=== PATIENT | female | born 1995 | race Caucasian/White ===

== ENCOUNTER → 2017-12-24 11:51 | Outpatient (CLI) | payer SELFPAY ==
[2017-12-24 14:31] LABS: HIV - WCH Non-Reactive (Nonreactive)
[2017-12-24 15:25] LABS: Chlamydia Trachomatis by PCR Negative (Negative); Neisserai gonorrhoeae by PCR Negative (Negative); Probe Check PASS; Sample Adequacy Control PASS; Specimen Processing Control PASS
[2017-12-28 02:41] LABS: Rapid Plasmin Reagin (RPR) NONREACTIVE (NONREACTIVE)
== END ==
PROVIDERS: Visit Provider Obstetrics & Gynecology
DX: Z34.83 Encounter for supervision of other normal pregnancy, third trimester (principal)
CPT/HCPCS: 36415; 86592; 86703; 87491; 87591

== ENCOUNTER → 2018-01-08 17:35 | Outpatient (CLI) | payer SELFPAY ==
[2018-01-08 19:23] LABS: Group B Strep DNA By PCR Negative (Negative); Internal Control PASS; Probe Check PASS; Specimen Processing Control PASS
== END ==
PROVIDERS: Visit Provider Obstetrics & Gynecology
DX: Z36.85 Encounter for antenatal screening for Streptococcus B (principal)
CPT/HCPCS: 87081; 87653

== ENCOUNTER → 2018-01-15 11:55 | Outpatient (CLI) | payer SELFPAY ==
[2018-01-15 14:44] LABS: Free T3 2.9 pg/mL (2.18-3.98); T4 Free Direct 0.73 ng/dL (0.76-1.46); Thyroid Stim Hormone (TSH) 1.52 uIU/mL (0.358-3.74)
== END ==
PROVIDERS: Visit Provider Obstetrics & Gynecology
DX: Z34.83 Encounter for supervision of other normal pregnancy, third trimester (principal)
CPT/HCPCS: 36415; 84439; 84443; 84481

== ENCOUNTER 2018-01-22 18:50 | Inpatient (IN) | payer SELFPAY ==
[2018-01-22 19:47] VITALS: BMI 43.2
[2018-01-22] MEDS: Lactated Ringers 1,000 ML 50 ML IV (20:05)
[2018-01-22 20:21] LABS: Bedside Glucose 107 mg/dL (70-110)
[2018-01-22 20:31] LABS: Hematocrit 37.8 % (37-47); Hemoglobin 12.2 g/dl (12.0-15.0); Mean Corp Hgb Conc 32.3 g/gl (32-36); Mean Corpuscular Hgb 27.2 pg (27.0-32.0); Mean Corpuscular Volume 84.4 fL (81-99); Mean Platelet Vol. 9.6 fl (6.2-12.0); Platelet Count 158 K/mm3 (150-450); RBC Distribution Width CV 17.9 % (11.6-14.6); RBC Distribution Width SD 55.9 fl (35.1-43.9); Red Blood Count 4.48 M/mm3 (4.2-5.4); White Blood Count 8.4 K/mm3 (4.4-11.0)
[2018-01-22 20:34] LABS: Scan Indicated on CBC? Y/N NO
[2018-01-22] MEDS: 0.9% Normal Saline 100 ML IV.SOLN. INTRA-UTER (20:35)
[2018-01-22] MEDS: miSOPROStol 25 MCG TABLET PO (20:40)
[2018-01-22] MEDS: 0.9% Saline Lock 10 ML Syringe IV (20:48)
[2018-01-22 21:41] LABS: Bedside Glucose 116 mg/dL (70-110)
[2018-01-22 22:46] LABS: Bedside Glucose 94 mg/dL (70-110)
[2018-01-23] VITALS (9 sets, daily range): BP systolic 119–160; BP diastolic 58–84; PULSE 102–132; RESP 16–18; TEMP 37–37.4; O2SAT 96–97
[2018-01-23] MEDS: miSOPROStol 25 MCG TABLET PO ×2 (00:43→04:39)
[2018-01-23 02:46] LABS: Bedside Glucose 86 mg/dL (70-110)
[2018-01-23 07:00] LABS: Bedside Glucose 78 mg/dL (70-110)
--- NOTE | 2018-01-23 08:25 | PCM.PN.BLA ---
Progress Note LABOR INDUCTION PROGRESS NOTE Garcia bulb came out last PM RN check of cervix 2-3 cm then, softer and -3 very anterior. Feeling some mild cramping. AVSS BP this am OK. Blood sugars wnl. Took pm dose of Glyburide 2.5 mg EFM 130-140 with avg variability. Accels Category I tracing Irregular UCs. poor pickup. CX: /anterior soft -3 (behind pubic symphysis) AROM clear, IUPC inserted. A/P: term IUP induction for PIH, gestational diabetes also and hyperthyroidism. Cytotec and Garcia bulb as initial method. Garcia out. Cytotec discontinued. Pitocin per protocol IUPC inserted to better monitor adequacy of UCs. Regular breakfast, diabetic diet. Hold am Glyburide. To labor liquids then. Hold am Labetolol 2/2 BPs wnl this am.
[2018-01-23] MEDS: Lactated Ringers 1,000 ML 50 ML IV ×3 (09:29→17:46)
[2018-01-23] MEDS: Oxytocin 30 units/NS 500 ml 30 UNITS/500 ML IV.SOLN IV (09:30)
[2018-01-23 10:36] LABS: Bedside Glucose 105 mg/dL (70-110)
[2018-01-23] MEDS: fentaNYL-bupivacaine (epidural) 100 ML BAG EPIDURAL ×2 (12:00→16:15)
[2018-01-23 16:10] LABS: Bedside Glucose 61 mg/dL (70-110)
[2018-01-23 16:26] LABS: Bedside Glucose 62 mg/dL (70-110)
[2018-01-23] MEDS: 0.9% Saline Lock 10 ML Syringe IV ×2 (16:36→16:37)
--- NOTE | 2018-01-23 19:25 | PN.OBGYN_ITS ---
Subjective: Comfortable with epidural in place. Objective: Afeb VSS. FHR tracing Cat 1. Adequate contractions by IUPC monitoring for greater than 10 hours. - Physical Exam General: Alert, Oriented x3, Cooperative, No apparent distress Lungs: Clear to auscultation, Normal air movement Cardiovascular: Regular rate, Regular Rhythm Abdomen: Soft, Non Tender, Non-Distended, Gravid, Appropriate for Gestational Age Extremities: No edema, No Calf Tenderness Skin: No rashes Neurological: Neuro grossly intact Psych/Mental Status: Normal Affect Comment: CE 4cm 80% -3 Weight: 228 lb 9.91 oz Body Mass Index (BMI) 43.2 Intake and Output for Last 24 Hours 01/21/18 01/22/18 01/23/18 23:59 23:59 23:59 Intake Total 100 / 100 300 / 300 Output Total 300 / 300 450 / 450 Balance -200 / -200 -150 / -150 Laboratory Tests Past 24 Hrs 01/22/18 01/22/18 20:00 20:00 WBC 8.4 RBC 4.48 Hgb 12.2 Hct 37.8 MCV 84.4 MCH 27.2 MCHC 32.3 RDW 17.9 H RDW Differential 55.9 H Plt Count 158 MPV 9.6 Blood Type O POSITIVE Antibody Screen NEGATIVE POC Glucose 01/23/18 01/23/18 01/23/18 16:19 16:01 10:30 POC Glucose 62 L 61 L 105 01/23/18 01/23/18 01/22/18 06:31 02:36 22:27 POC Glucose 78 86 94 01/22/18 01/22/18 21:28 20:13 POC Glucose 116 H 107 Medical Necessity - Tobacco Use Smoking Status: Never smoker Assessment/Plan 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 head has significant caput as well. Given lack of progress have elected to recommend delivery. Indications for delivery explained. Procedures, risks, and postoperative expectations discussed. All questions answered.
[2018-01-23 19:31] LABS: Bedside Glucose 67 mg/dL (70-110)
[2018-01-23] MEDS: Sodium Citrate/Citric Acid 30 ML UDC PO (19:33)
--- NOTE | 2018-01-23 19:34 | DCINST_ITS ---
Discharge Diet: No Restrictions Discharge Activity: Return to Normal Activity, May Not Drive, May not drive while taking narcotic pain medications., May Shower Return to work on:: 03/25/18 May shower in (days): 0 May resume sexual activity in: 4-6 weeks Call your doctor if your incision/area has: Sudden Increased Bleeding, Increased Pain/ Swelling, Increased Redness, Foul Smelling Discharge, Swelling at the incision site Call your doctor if you observe: Fever of 101 or Higher, Inability to urinate, Inability to have a bowel movement, Using more than one pad per hour, Shortness of breath, Chest pain, Calf discomfort, Uncontrolled pain Remove Dressing in (days):: 2 Cleanse incision/area with: Soap & Water Additional Instructions: If you experience any of the following, contact your healthcare provider. * Bleeding that soaks a pad every hour for 2 hours * Fever 100.4 or higher * Unrelieved incision or abdominal pain * Swelling, redness, discharge or bleeding from your incision or episiotomy site * Your incision begins to separate * Problems urinating (including inability to urinate or burning while urinating) . * Visual changes * Severe headache * Flu-like symptoms * Pain or redness in one of both of your breasts * Pain, warmth, tenderness or swelling in your legs, especially the calf area * Frequent nausea and vomiting * Symptoms of depression or anxiety If you experience any of the following, call 911 or go to the nearest Emergency Room. * Chest pain * Problems breathing * Seizure activity * Partial or complete paralysis of a body part, slurred speech, weakness or drooping of the face, or a sudden inability to walk or hold your balance Allergies/Adverse Reactions: Allergies No Known Allergies Allergy (Verified 01/22/18 19:42) Medications to take at Discharge Docusate Sodium [Dok] 100 mg PO BID 01/22/18 Ferrous Sulfate [Iron] 325 mg PO DAILY 01/22/18 Labetalol [Trandate (Beta Loretta)] 100 mg PO BID 01/22/18 Ibuprofen 600 mg PO Q6H PRN PRN #30 tab 01/23/18 Oxycodone [Oxyir] 5 - 10 mg PO Q4H PRN PRN 7 Days #28 tab 01/23/18 The following prescriptions were given: Oxycodone [Oxyir] 5 - 10 mg PO Q4H PRN PRN 7 Days #28 tab PRN Reason: Mod-Severe Pain (-03/27) Ibuprofen 600 mg PO Q6H PRN PRN #30 tab PRN Reason: pain or cramping Follow-Up: Call to make an appointment with your doctor for an incision check in 1-2 weeks. You will also need a 6 week post- follow up appointment. Test results from this visit will be discussed in further detail at your follow- up appointment, if applicable. Please Follow Up With: Ani Isaac MD Proposed Discharge Date: 01/26/18
--- NOTE | 2018-01-23 19:52 | OP.PCM_ITS ---
Problem List (1) Arrest of dilation, delivered, current hospitalization Status: Chronic Report of Operation Date of Procedure: 01/23/18 Pre-Operative Diagnosis: GDM A2, Gestational Hypertension, Arrest of labor at 4 cm, Failed induction Post-Operative Diagnosis: Same Surgery/Procedure Performed:: Primary Low Transverse Section Description of Surgical Findings:: Live male in vertex presentation. Apgars 8/8. Amniotic fluid clear. Normal appearing uterus, ovaries, and fallopian tubes. spent grain dryer: Nico Moran Type of Anesthesia:: Epidural Anesthesiologist: Ronak Kaufman Special Medications: none Specimen's removed: cord blood Drains: klein Estimated Blood Loss (mL): 600cc Fluids Replaced: 1500cc LR Description of Procedure: Cherie was taken to the OR with IV running. She was given two grams of Ancef intravenously for surgical prophylaxis. SCDs were in place and operational throughout the case. A klein catheter had been previously placed. Once here epidural was dosed and anesthesia was found to be adequate she was prepped and draped in the supine position with a leftward tilt. A Pfannensteil skin incision was then made with the scalpel about two cm above the symphysis pubis. The underlying subcutaneous tissue was dissected down to the level of fascia with blunt and sharp dissection. The fascia was then incised horizontally and this incision was extended bilaterally with the GENTILE scissors. The rectus muscles were then dissected off the lower and upper portions of the fascia. The rectus muscles were in the midline, the peritoneum was identified and entered sharply. The peritoneal defect was extended using blunt retraction. A bladder blade was placed. The vesicouterine peritoneum was identified, entered sharply and a bladder flap was created. The bladder blade was replaced. The lower uterine segment was then incised in a transverse fashion. Once the cavity was entered the uterine defect was extended using blunt lateral and superior traction. The baby's head was then delivered followed by the body. The nose and mouth were suctioned with a bulb suction. The cord was then clamped and cut. The baby was then handed off to the waiting nursery nursing staff for evaluation. The placenta was then delivered manually. The uterus was exteriorized and cleared of all clot and membranes. The uterine defect was then closed in two layers with #1 Vicryl suture. The posterior cul de sac was cleared of all clot and fluid. The uterus was returned to the abdomen. The gutters were then cleared of clot and fluid. The uterine incision was reinspected and found to be hemostatic. The peritoneum was then closed with a running stitch of 2-0 Vicryl. The rectus muscles were reapproximated with interrupted sutures of 0-Vcryl. The fascia was closed with a running stitch of #1 Stratofix suture. The subcutaneous tissue was closed with 2-0 Vicryl. The skin was closed with a subcuticular stitch of 4-0 Monocryl suture. Sponge, lap, needle, and instrument counts were correct. She was taken to the recovery room in stable condition. Grafts/Implants Used: none - Complications none - Admit VTE Documentation VTE Present on Admission: No VTE Mechan Device Prophylaxis: SCD's VTE Pharm Prophylaxis ordered?: No
[2018-01-23] MEDS: Cefazolin 2 GM in 0.9% Normal Saline 100 ML IV (20:00)
[2018-01-23] MEDS: Oxytocin 30 units/NS 500 ml 30 UNITS/500 ML IV.SOLN 167 UNITS IV (20:14)
--- NOTE | 2018-01-23 20:36 | PCM.OB.CSR ---
- Problem List (1) Arrest of dilation, delivered, current hospitalization Status: Chronic Delivery Classification: ASHER Final LISSETH: 01/29/18 Final LISSETH Source: US <20 weeks Gestational age: 39 Weeks and 1 Days Indications for : Sec. Arrest of Dilitation Description of Procedure: Maximum dilation 4 cm despite adequate contractions for greater than 10 hours. Delivery of a live male with APGARs of 8/8. Normal appearing uterus, ovaries, and fallopian tubes. Amniotic Membrane Rupture Type: Artificial Amniotic Fluid Description: Clear Placenta Disposition: [facility] Specimen(s) sent to pathology: cord blood Drain: Garcia to straight drain Fluids Replaced: 1500cc LR Cord Entanglement: None Nuchal Cord Compression: Without compression Cord Vessel Description: 3 Vessels Esitmated Blood Loss (ml): 600cc Gender: Male (1 minute): 8 (5 minute): 8 Pre-op Antibiotic Given: Ancef 2 grams IV x1 Pt instructed on risks of surgery: Bleeding, Infection, Injury to surrounding structure(s) including bowel and bladder - Admit VTE Documentation VTE Present on Admission: No VTE Mechan Device Prophylaxis: SCD's VTE Pharm Prophylaxis ordered?: No
[2018-01-23] MEDS: Labetalol 100 MG Tablet PO (21:44)
[2018-01-23] MEDS: Ketorolac 30 MG/ML Syringe IV (21:56)
[2018-01-23 22:15] LABS: Bedside Glucose 86 mg/dL (70-110)
[2018-01-23] MEDS: Lactated Ringers 1,000 ML 100 ML IV (23:20)
[2018-01-24] VITALS (17 sets, daily range): BP systolic 127–148; BP diastolic 60–87; PULSE 96–119; RESP 16–20; TEMP 36.3–37.1; O2SAT 96–99
[2018-01-24] MEDS: Cefazolin 1 GM/50 ML BAG IV ×2 (04:08→12:57)
[2018-01-24] MEDS: Ketorolac 30 MG/ML Syringe IV ×4 (06:01→21:48)
[2018-01-24 06:53] LABS: Hematocrit 35.3 % (37-47); Hemoglobin 11.4 g/dl (12.0-15.0); Mean Corp Hgb Conc 32.3 g/gl (32-36); Mean Corpuscular Hgb 27.3 pg (27.0-32.0); Mean Corpuscular Volume 84.7 fL (81-99); Mean Platelet Vol. 9.8 fl (6.2-12.0); Platelet Count 143 K/mm3 (150-450); RBC Distribution Width CV 18.1 % (11.6-14.6); Red Blood Count 4.17 M/mm3 (4.2-5.4); White Blood Count 13.5 K/mm3 (4.4-11.0)
[2018-01-24 06:58] LABS: Scan Indicated on CBC? Y/N NO
--- NOTE | 2018-01-24 07:36 | PCM.PN.OB ---
Subjective: No complaints this morning. Pain reasonably controlled. Tolerating PO. Bleeding light. Objective: Afeb VSS BP mildly elevated. Hgb stable. Urine output adequate. - Physical Exam General: Alert, Oriented x3, Cooperative, No apparent distress Lungs: Clear to auscultation, Normal air movement Cardiovascular: Regular rate, Regular Rhythm Abdomen: Soft, Non Tender, - - Fundus nontender, incision dressing dry Extremities: Edema - 1+ Vital Signs Temp Pulse Resp BP Pulse Ox 98.3 F 119 H 18 148/74 H 96 01/24/18 05:04 01/24/18 06:04 01/24/18 06:04 01/24/18 05:04 01/24/18 06:04 Oxygen Delivery Method Room Air Weight: 228 lb 9.91 oz Body Mass Index (BMI) 43.2 Intake and Output for Last 24 Hours 01/22/18 01/23/18 01/24/18 23:59 23:59 23:59 Intake Total 100 / 100 1040 / 1040 703 / 703 Output Total 300 / 300 1350 / 1350 400 / 400 Balance -200 / -200 -310 / -310 303 / 303 Laboratory Tests Past 24 Hrs 01/24/18 06:25 WBC 13.5 H RBC 4.17 L Hgb 11.4 L Hct 35.3 L MCV 84.7 MCH 27.3 MCHC 32.3 RDW 18.1 H RDW Differential 56.0 H Plt Count 143 L MPV 9.8 POC Glucose 01/23/18 01/23/18 01/23/18 21:55 19:22 16:19 POC Glucose 86 67 L 62 L 01/23/18 01/23/18 16:01 10:30 POC Glucose 61 L 105 Medical Necessity - Tobacco Use Smoking Status: Never smoker Assessment/Plan Doing well on POD#1. Post op blood glucose level normal. Continue low dose labetalol. D/C klein later today. Continue routine PO care.
[2018-01-24] MEDS: Ferrous Sulfate 325 MG Tablet PO (08:50)
[2018-01-24] MEDS: Lactated Ringers 1,000 ML 100 ML IV (10:27)
[2018-01-24] MEDS: Docusate Sodium 100 MG Capsule PO ×2 (10:28→21:58)
[2018-01-24] MEDS: Labetalol 100 MG Tablet PO ×2 (10:28→21:48)
--- NOTE | 2018-01-24 19:02 | PCM.PN.BLA ---
Progress Note Patient relates tearfulness early today and prior h/o depression improved with Zoloft however she only took if for 3 weeks, then discontinued it after mood improved. She is concerned about risk for depression. Discussed blues vs. depression symptoms and timing. Commone side effects of Zoloft reviewed, pt tolerated well previously. Following discussion, pt opts to restart Zoloft. Zoloft ordered for am.
[2018-01-24] MEDS: 0.9% Saline Lock 10 ML Syringe IV (22:00)
--- NOTE | 2018-01-25 02:23 | NURSING ---
2200-feeling gas off and on. enc up to ambulate
[2018-01-25] MEDS: Ketorolac 30 MG/ML Syringe IV ×3 (03:13→14:59)
[2018-01-25] MEDS: 0.9% Saline Lock 10 ML Syringe IV ×3 (03:14→14:59)
--- NOTE | 2018-01-25 09:10 | PCM.PN.OB ---
Subjective: Cherie is sore this morning. Pain improved from yesterday. She is passing flatus and had a bowel movement early this morning. Tolerates a regular diet. She continues nursing. Objective: AVSS - Physical Exam General: Alert, Oriented x3, Cooperative, No apparent distress HEENT: Atraumatic, Normocephalic Lungs: Clear to auscultation, Normal air movement Cardiovascular: Regular rate, Regular Rhythm, Normal S1, Normal S2 Abdomen: Bowel Sounds Present, Soft, Non Tender, Obese, - - fundus firm and nontender Extremities: No edema, No Calf Tenderness Neurological: Neuro grossly intact Psych/Mental Status: Normal Affect, Appropriate, Alert and oriented to time, place, person, mood and affect Vital Signs Temp Pulse Resp BP Pulse Ox 98.1 F 115 H 20 H 137/87 H 98 01/24/18 21:00 01/24/18 21:00 01/24/18 21:00 01/24/18 21:05 01/24/18 21:00 Oxygen Delivery Method Room Air Weight: 103.7 kg Body Mass Index (BMI) 43.2 Intake and Output for Last 24 Hours 01/23/18 01/24/18 01/25/18 23:59 23:59 23:59 Intake Total 1040 / 1040 2753 / 2753 120 / 120 Output Total 1350 / 1350 1850 / 1850 250 / 250 Balance -310 / -310 903 / 903 -130 / -130 Medical Necessity - Tobacco Use Smoking Status: Never smoker Assessment/Plan 22yo POD#2 S/P pltcs DOING WELL. -Rh positive -Routine postop care -cONSIDER D/C LATER TODAY.
[2018-01-25 09:15] VITALS: BP 134/72; PULSE 101; RESP 18; TEMP 36.4; O2SAT 97
[2018-01-25] MEDS: Ferrous Sulfate 325 MG Tablet PO (09:33)
[2018-01-25] MEDS: Sertraline 50 MG Tablet 25 MG PO (09:33)
[2018-01-25] MEDS: Labetalol 100 MG Tablet PO (09:33)
--- NOTE | 2018-01-25 09:40 | PN.OBGYN_ITS ---
- Physical Exam Vital Signs Temp Pulse Resp BP Pulse Ox 98.1 F 115 H 20 H 137/87 H 98 01/24/18 21:00 01/24/18 21:00 01/24/18 21:00 01/24/18 21:05 01/24/18 21:00 Oxygen Delivery Method Room Air Weight: 103.7 kg Body Mass Index (BMI) 43.2 Intake and Output for Last 24 Hours 01/23/18 01/24/18 01/25/18 23:59 23:59 23:59 Intake Total 1040 / 1040 2753 / 2753 120 / 120 Output Total 1350 / 1350 1850 / 1850 250 / 250 Balance -310 / -310 903 / 903 -130 / -130 Medical Necessity - Tobacco Use Smoking Status: Never smoker
--- NOTE | 2018-01-25 13:54 | PCM.DC.SUM ---
Discharge Date and Diagnosis Date of Admission: 01/22/18 Date of Discharge: 01/25/18 - Secondary Discharge Diagnosis Chronic Problems Arrest of dilation, delivered, current hospitalization (Chronic) Hospital Course and Treatment Consultations 01/22/18 18:55 Consult: Anesthesia Routine Comment: Reason For Exam: labor Operations: - - section Summary of Care Provided: The patient is a 22 year old F 1 admitted at 39+ weeks gestation with h/o gestational diabetes, gestational hypertension for induction of labor. She underwent a low transverse section on hospital day #2 for failed induction with arrest of dilation at 4cm. She was restarted on Zoloft post-operatively. Her postop course was otherwise unremarkable and she was discharged to home on post-operative day #2. Discharge Diet: No Restrictions Discharge Activity: Return to Normal Activity, May Not Drive, May not drive while taking narcotic pain medications., May Shower Return to work on:: 03/25/18 May shower in (days): 0 May resume sexual activity in: 4-6 weeks Call your doctor if your incision/area has: Sudden Increased Bleeding, Increased Pain/ Swelling, Increased Redness, Foul Smelling Discharge, Swelling at the incision site Call your doctor if you observe: Fever of 101 or Higher, Inability to urinate, Inability to have a bowel movement, Using more than one pad per hour, Shortness of breath, Chest pain, Calf discomfort, Uncontrolled pain Remove Dressing in (days):: 2 Cleanse incision/area with: Soap & Water Home Medications: Medications to take at Discharge Docusate Sodium [Dok] 100 mg PO BID 01/22/18 Ferrous Sulfate [Iron] 325 mg PO DAILY 01/22/18 Ibuprofen 600 mg PO Q6H PRN PRN #30 tab 01/23/18 Oxycodone [Oxyir] 5 - 10 mg PO Q4H PRN PRN 7 Days #28 tab 01/23/18 Labetalol [Trandate (Beta Loretta)] 100 mg PO BID tablet 01/25/18 Sertraline HCl [Zoloft] 25 mg PO DAILY tablet 01/25/18 Following Prescrptions Were Given to Patient: Oxycodone [Oxyir] 5 - 10 mg PO Q4H PRN PRN 7 Days #28 tab PRN Reason: Mod-Severe Pain (-03/27) Ibuprofen 600 mg PO Q6H PRN PRN #30 tab PRN Reason: pain or cramping Please Follow Up With: Ani Isaac MD Medical Necessity - Tobacco Use Smoking Status: Never smoker Meaningful Use Info Meaningful Use Diagnoses (Choose all that apply): None applicable
--- NOTE | 2018-01-25 13:57 | DS.PCM_ITS ---
Discharge Date and Diagnosis Date of Admission: 01/22/18 Date of Discharge: 01/25/18 - Secondary Discharge Diagnosis Chronic Problems Arrest of dilation, delivered, current hospitalization (Chronic) Hospital Course and Treatment Consultations 01/22/18 18:55 Consult: Anesthesia Routine Comment: Reason For Exam: labor Operations: - - section Summary of Care Provided: The patient is a 22 year old F 1 admitted at 39+ weeks gestation with h/ o gestational diabetes, gestational hypertension for induction of labor. She underwent a low transverse section on hospital day #2 for failed induction with arrest of dilation at 4cm. She was restarted on Zoloft post- operatively. Her postop course was otherwise unremarkable and she was discharged to home on post-operative day #2. Discharge Diet: No Restrictions Discharge Activity: Return to Normal Activity, May Not Drive, May not drive while taking narcotic pain medications., May Shower Return to work on:: 03/25/18 May shower in (days): 0 May resume sexual activity in: 4-6 weeks Call your doctor if your incision/area has: Sudden Increased Bleeding, Increased Pain/ Swelling, Increased Redness, Foul Smelling Discharge, Swelling at the incision site Call your doctor if you observe: Fever of 101 or Higher, Inability to urinate, Inability to have a bowel movement, Using more than one pad per hour, Shortness of breath, Chest pain, Calf discomfort, Uncontrolled pain Remove Dressing in (days):: 2 Cleanse incision/area with: Soap & Water Home Medications: Medications to take at Discharge Docusate Sodium [Dok] 100 mg PO BID 01/22/18 Ferrous Sulfate [Iron] 325 mg PO DAILY 01/22/18 Ibuprofen 600 mg PO Q6H PRN PRN #30 tab 01/23/18 Oxycodone [Oxyir] 5 - 10 mg PO Q4H PRN PRN 7 Days #28 tab 01/23/18 Labetalol [Trandate (Beta Loretta)] 100 mg PO BID tablet 01/25/18 Sertraline HCl [Zoloft] 25 mg PO DAILY tablet 01/25/18 Following Prescrptions Were Given to Patient: Oxycodone [Oxyir] 5 - 10 mg PO Q4H PRN PRN 7 Days #28 tab PRN Reason: Mod-Severe Pain (-03/27) Ibuprofen 600 mg PO Q6H PRN PRN #30 tab PRN Reason: pain or cramping Please Follow Up With: Ani Isaac MD Medical Necessity - Tobacco Use Smoking Status: Never smoker Meaningful Use Info Meaningful Use Diagnoses (Choose all that apply): None applicable
--- NOTE | 2018-01-25 13:59 | DCINST_ITS ---
Discharge Diet: No Restrictions Discharge Activity: Return to Normal Activity, May Not Drive, May not drive while taking narcotic pain medications., May Shower Return to work on:: 03/25/18 May shower in (days): 0 May resume sexual activity in: 4-6 weeks Call your doctor if your incision/area has: Sudden Increased Bleeding, Increased Pain/ Swelling, Increased Redness, Foul Smelling Discharge, Swelling at the incision site Call your doctor if you observe: Fever of 101 or Higher, Inability to urinate, Inability to have a bowel movement, Using more than one pad per hour, Shortness of breath, Chest pain, Calf discomfort, Uncontrolled pain Suture Line Care: Avoid Pulling/Pushing Remove Dressing in (days):: 2 Cleanse incision/area with: Soap & Water Additional Instructions: If you experience any of the following, contact your healthcare provider. * Bleeding that soaks a pad every hour for 2 hours * Fever 100.4 or higher * Unrelieved incision or abdominal pain * Swelling, redness, discharge or bleeding from your incision or episiotomy site * Your incision begins to separate * Problems urinating (including inability to urinate or burning while urinating) . * Visual changes * Severe headache * Flu-like symptoms * Pain or redness in one of both of your breasts * Pain, warmth, tenderness or swelling in your legs, especially the calf area * Frequent nausea and vomiting * Symptoms of depression or anxiety If you experience any of the following, call 911 or go to the nearest Emergency Room. * Chest pain * Problems breathing * Seizure activity * Partial or complete paralysis of a body part, slurred speech, weakness or drooping of the face, or a sudden inability to walk or hold your balance Allergies/Adverse Reactions: Allergies No Known Allergies Allergy (Verified 01/22/18 19:42) Medications to take at Discharge Docusate Sodium [Dok] 100 mg PO BID 01/22/18 Ferrous Sulfate [Iron] 325 mg PO DAILY 01/22/18 Ibuprofen 600 mg PO Q6H PRN PRN #30 tab 01/23/18 Oxycodone [Oxyir] 5 - 10 mg PO Q4H PRN PRN 7 Days #28 tab 01/23/18 Sertraline HCl [Zoloft] 25 mg PO DAILY tablet 01/25/18 The following prescriptions were given: Oxycodone [Oxyir] 5 - 10 mg PO Q4H PRN PRN 7 Days #28 tab PRN Reason: Mod-Severe Pain (4-03/27) Ibuprofen 600 mg PO Q6H PRN PRN #30 tab PRN Reason: pain or cramping Follow-Up: Call to make an appointment with your doctor for an incision check in 1-2 weeks. You will also need a 6 week post- follow up appointment. Test results from this visit will be discussed in further detail at your follow- up appointment, if applicable. Please Follow Up With: Ani Isaac MD When: 1-2 weeks Proposed Discharge Date: 01/26/18
[2018-01-25 14:05] VITALS: BP 123/70; PULSE 98; RESP 18; TEMP 37.1; O2SAT 96
== END 2018-01-25 17:14 | disposition home or self-care (01) | DRG 370 ==
PROVIDERS: Obstetrics & Gynecology; Admitting Provider Obstetrics & Gynecology; Visit Provider Obstetrics & Gynecology
DX: O62.1 Secondary uterine inertia (principal); E05.90 Thyrotoxicosis, unspecified without thyrotoxic crisis or storm; O13.3 Gestational [pregnancy-induced] hypertension without significant proteinuria, third trimester; O24.425 Gestational diabetes mellitus in childbirth, controlled by oral hypoglycemic drugs; O99.284 Endocrine, nutritional and metabolic diseases complicating childbirth; O34.43 Maternal care for other abnormalities of cervix, third trimester; O99.344 Other mental disorders complicating childbirth; O61.8 Other failed induction of labor; F32.9 Major depressive disorder, single episode, unspecified; Z3A.39 39 weeks gestation of pregnancy; Z37.0 Single live birth
CPT/HCPCS: 59025; 59050; 82962; 85027; 86850; 86900; 99218; J7120; A4216; G0378; J3490

== ENCOUNTER → 2018-03-05 15:23 | Outpatient (CLI) | payer SELFPAY ==
[2018-03-05 16:07] LABS: Free T3 2.6 pg/mL (2.18-3.98); T4 Free Direct 0.83 ng/dL (0.76-1.46); Thyroid Stim Hormone (TSH) 1.58 uIU/mL (0.358-3.74)
[2018-03-12 14:27] LABS: HPV Reflexed? NOT INDICATED
== END ==
LOC: LABSPEC 15:24 → WOBLAB 15:26
PROVIDERS: Visit Provider Obstetrics & Gynecology
DX: Z12.4 Encounter for screening for malignant neoplasm of cervix (principal); E05.90 Thyrotoxicosis, unspecified without thyrotoxic crisis or storm
CPT/HCPCS: 36415; 84439; 84443; 84481; 88175; G0145

== ENCOUNTER → 2018-05-16 15:55 | Outpatient (CLI) | payer SELFPAY ==
[2018-05-16 18:08] LABS: Hemoglobin A1c 5.9 % (4.2-6.3)
[2018-05-22 12:04] LABS: HPV APTIMA, High Risk Negative (Negative)
--- OUTSIDE RECORDS SUMMARY | 2018-07-11 22:08 | XMS RPT_ITS ---
:1995 Author Organization OHIP Care Team Providers Name Role Phone GOSIA BURT Admitting Unavailable GOSIA BURT Attending Unavailable CHENTE, GOSIA Primary Care Unavailable DR JUNG DA SILVA Admitting Unavailable DR JUNG DA SILVA Attending Unavailable DR JUNG DA SILVA Primary Care Unavailable BRANDEE AN MD Consulting Unavailable BRANDEE AN MD Referring Unavailable PROVIDER, UNKNOWN Consulting Unavailable PROVIDER, UNKNOWN Consulting Unavailable PROVIDER, UNKNOWN Consulting Unavailable CHENTE GOSIA Admitting Unavailable NIKOLAY BURTA Attending Unavailable NIKOLAY BURTA Primary Care Unavailable BRANDEE AN MD Consulting Unavailable PROVIDER, UNKNOWN Consulting Unavailable PROVIDER, UNKNOWN Consulting Unavailable PROVIDER, UNKNOWN Consulting Unavailable DR JUNG DA SILVA Admitting Unavailable DR JUNG DA SILVA Attending Unavailable DR REKHA JUNG E Primary Care Unavailable BRNADEE AN MD Consulting Unavailable PROVIDER, UNKNOWN Consulting Unavailable PROVIDER, UNKNOWN Consulting Unavailable PROVIDER, UNKNOWN Consulting Unavailable GOSIA BURT Admitting Unavailable CHENTE, GOSIA Attending Unavailable GOSIA BURT Primary Care Unavailable BRANDEE AN MD Consulting Unavailable PROVIDER, UNKNOWN Consulting Unavailable PROVIDER, UNKNOWN Consulting Unavailable PROVIDER, UNKNOWN Consulting Unavailable APPLEJEANETH NARANJOON SUMMER Admitting Unavailable JEANETH APPLEON SUMMER Attending Unavailable JEANETH APPLEON SUMMER Primary Care Unavailable BRANDEE AN MD Consulting Unavailable PROVIDER, UNKNOWN Consulting Unavailable PROVIDER, UNKNOWN Consulting Unavailable PROVIDER, UNKNOWN Consulting Unavailable Apple-Colin, Summer Attending Unavailable Apple-Colin, Summer Referring Unavailable Calderon Gamez Primary Care Unavailable Gabriela Allen Admitting Unavailable Gabriela Allen Attending Unavailable Ambika-Colin, Summer Attending Unavailable Apple-Colin, Summer Attending Unavailable Apple-Colin, Summer Attending Unavailable Apple-Colin, Summer Attending Unavailable PROBLEMS PROBLEMS DATE TYPE CONDITION / CODE ATTENDING STATUS SOURCE 03/05/2018 Unknown Z12.4 - Encounter Poncho, Active Nitesh for screening for [facility] malignant neoplasm [facility] of cervix / Repository Z12.4(ICD-10) 05/02/2018 Unknown Z34.03 - Encounter Gabriela Allen Active [place] for supervision of [facility] normal first Hospital , third Repository trimester / Z34.03(ICD-10) 01/15/2018 Unknown Z34.83 - Encounter Poncho, Active Nitesh for supervision of [facility] other normal Hospital , third Repository trimester / Z34.83(ICD-10) 01/08/2018 Unknown Z36.85 - Encounter Poncho, Active Nitesh for [facility] screening for Hospital Streptococcus B / Repository Z36.85(ICD-10) 01/07/2018 Admitting Gestational COLIN APPLE Active Maxwell Sim Diagnosis diabetes mellitus [facility] in , [facility] controlled / Repository B52755(ICD-10) 01/07/2018 Principle Gestational COLIN APPLE Active Maxwell Sim Diagnosis diabetes mellitus [facility] in , [facility] controlled / Repository I95610(ICD-10) PROCEDURES PROCEDURES No Procedure Records FoundRESULTS RESULTS HEMOGLOBIN A1C Collected: 05/16/2018 Status: F Source: NITESH 3:56 PM [facility] REPOSITORY TYPE CODE TESTS RESULT OUT OF RANGE REFERENCE UNITS LAB L501.9985 4.2-6.3 % Normal HGB A1C 5.9 Performed By: #### L501.9985 #### [facility] [place], [address] PAP IG HPV HR Collected: 05/16/2018 Status: F Source: NIT[place] APTIMA 3:30 PM [facility] REPOSITORY Order Comment: CYTOLOGY INFORMATION: - CLINICAL INFORMATION: - DATE LMP/MENOPAUSE: 04/22 LMP - COLLECTION VIAL: Thin Prep Vial - GAS TESTER SOURCE: CERVICAL/ENDOCERVICAL - COLLECTION TECHNIQUE: BRUSH/SPATULA Specimen Comment: [id number] Specimen Comment: Source.............Cervix;Endocervix Specimen Comment: LMP / Prev Treat...[id number] Specimen Comment: No. of containers..01 ThinPrep Vial TYPE CODE TESTS RESULT OUT OF RANGE REFERENCE UNITS LAB L7400.0800 . Normal DIAGN Comment Result Comment: NEGATIVE FOR INTRAEPITHELIAL LESION AND MALIGNANCY. LAB L7400.0900 . Normal ADEQ Comment Result Comment: Satisfactory for evaluation. Endocervical and/or squamous metaplastic cells (endocervical component) are present. LAB L7400.1400 . Normal PERFORM Comment Result Comment: Charlene Vegas, Diesel Powerplant Supervisor LAB L7400.2575 . Normal Test not TEST METHOD performed Result Comment: [employer] Prep(R) Public Policy Manager was unable to read this specimen. Therefore a manual review was performed. LAB L7400.2600 . Normal . COMM LAB L7400.2700 . Normal PAPSMR Comment Result Comment: The Pap smear is a screening test designed to aid in the detection of premalignant and malignant conditions of the uterine cervix. It is not a diagnostic procedure and should not be used as the sole means of detecting cervical cancer. Both false-positive and false-negative reports do occur. LAB L7400.2760 Negative Normal HPV APTIMA, Negative HR Result Comment: This test detects fourteen high-risk HPV types (16/18/31/33/35/39/45/ 51/52/56/58/59/66/68) without differentiation. Performed at: [address] [id number] Recyclable Materials Distributor: Melissa Ireland MD, Phone: [phone] Performed at: =G - [facility], [place] [id number] Recyclable Materials Distributor: Melissa Ireland MD, Phone: [phone] Performed By: #### L7400.0377 #### [facility] (refer to report for specific site) refer to report for address and phone number FREE T3 Collected: 03/05/2018 Status: F Source: NITESH 2:00 PM [facility] REPOSITORY TYPE CODE TESTS RESULT OUT OF RANGE REFERENCE UNITS LAB L501.73252 2.18-3.98 pg/mL Normal FREE T3 2.6 Performed By: #### L501.72128, L501.9520, L506.0400 #### [facility] [address] [facility] [place], [place], [address] THYROID STIM HORMONE Collected: 03/05/2018 Status: F Source: NITESH (TSH) 2:00 PM [facility] REPOSITORY TYPE CODE TESTS RESULT OUT OF RANGE REFERENCE UNITS LAB L501.9520 0.358-3.74 uIU/mL Normal TSH 1.58 Performed By: #### L501.73640, L501.9520, L506.0400 #### [facility] [address] [facility] [place], [place], [address] T4 FREE DIRECT Collected: 03/05/2018 Status: F Source: NITESH 2:00 PM [facility] REPOSITORY TYPE CODE TESTS RESULT OUT OF RANGE REFERENCE UNITS LAB L506.0400 0.76-1.46 ng/dL Normal T4 FREE 0.83 DIRECT Performed By: #### L501.37093, L501.9520, L506.0400 #### [facility] [address] [facility] [place], [place], [address] PAP I-G W/RFX Collected: 03/05/2018 Status: F Source: NITESH HRHPV-APTIMA 1:30 PM [facility] REPOSITORY Order Comment: CYTOLOGY INFORMATION: - CLINICAL INFORMATION: - DATE LMP/MENOPAUSE: - COLLECTION VIAL: Thin Prep Vial - GAS TESTER SOURCE: CERVICAL/ENDOCERVICAL - COLLECTION TECHNIQUE: BRUSH/SPATULA Specimen Comment: [id number] Specimen Comment: Source.............Cervix;Endocervix Specimen Comment: Other..............Post- Specimen Comment: No. of containers..01 ThinPrep Vial TYPE CODE TESTS RESULT OUT OF RANGE REFERENCE UNITS LAB L7400.0800 . Normal DIAGN Comment Result Comment: UNSATISFACTORY FOR EVALUATION. LAB L7400.0900 . Normal ADEQ Comment Result Comment: Specimen processed and examined but unsatisfactory for evaluation of epithelial abnormality because of insufficient cellularity. LAB L7400.1300 . Normal RECOMM Comment Result Comment: Suggest follow up as clinically appropriate. LAB L7400.1400 . Normal PERFORM Comment Result Comment: Celeste Elmore, Diesel Powerplant Supervisor (ASCP) LAB L7400.1500 . Normal QC Comment REV Result Comment: Ngozi Cuevas, Supervisory Diesel Powerplant Supervisor (ASCP) LAB L7400.2575 . Normal TEST METHOD Comment Result Comment: This liquid based ThinPrep(R) pap test was screened with the use of an image guided system. LAB L7400.2600 . Normal . COMM LAB L7400.2700 . Normal PAPSMR Comment Result Comment: The Pap smear is a screening test designed to aid in the detection of premalignant and malignant conditions of the uterine cervix. It is not a diagnostic procedure and should not be used as the sole means of detecting cervical cancer. Both false-positive and false-negative reports do occur. LAB L7400.2800 . Normal HPV RFLX Comment Result Comment: The HPV DNA reflex criteria were not met with this specimen result therefore, no HPV testing was performed. Performed at: - [facility] [id number] Recyclable Materials Distributor: Melissa Ireland MD, Phone: [phone] Performed By: #### L7400.0353 #### [facility] (refer to report for specific site) refer to report for address and phone number DISCHARGE INSTRUCTION Observed: 01/25/2018 Status: F Source: NITESH 2:01 PM [facility] REPOSITORY [facility] Medical Records Department [address] [place] [address] [place] [address] Instructions for Home/Discharge Instructions 01/25/18 1359 MR#: [id number] Acct: [id number] Name: CHERIE CARR Rep #: [id number] : 1995 22 From: Ani Kapoor MD PCP: Status: ADM IN ADDENDUM by Ani Isaac MD on 01/25/18 at 1401 Also continue your Labetalol 100mg tablets twice a day. Take by mouth. Date Ani Isaac MD cc: * Signed Discharge Diet: No Restrictions Discharge Activity: Return to Normal Activity, May Not Drive, May not drive while taking narcotic pain medications., May Shower Return to work on:: 03/25/18 May shower in (days): 0 May resume sexual activity in: 4-6 weeks Call your doctor if your incision/area has: Sudden Increased Bleeding, Increased Pain/ Swelling, Increased Redness, Foul Smelling Discharge, Swelling at the incision site Call your doctor if you observe: Fever of 101 or Higher, Inability to urinate, Inability to have a bowel movement, Using more than one pad per hour, Shortness of breath, Chest pain, Calf discomfort, Uncontrolled pain Suture Line Care: Avoid Pulling/Pushing Remove Dressing in (days):: 2 Cleanse incision/area with: Soap AND Water Additional Instructions: If you experience any of the following, contact your healthcare provider. * Bleeding that soaks a pad every hour for 2 hours * Fever 100.4 or higher * Unrelieved incision or abdominal pain * Swelling, redness, discharge or bleeding from your incision or episiotomy site * Your incision begins to separate * Problems urinating (including inability to urinate or burning while urinating). * Visual changes * Severe headache * Flu-like symptoms * Pain or redness in one of both of your breasts * Pain, warmth, tenderness or swelling in your legs, especially the calf area * Frequent nausea and vomiting * Symptoms of depression or anxiety If you experience any of the following, call 911 or go to the nearest Emergency Room. * Chest pain * Problems breathing * Seizure activity * Partial or complete paralysis of a body part, slurred speech, weakness or drooping of the face, or a sudden inability to walk or hold your balance Allergies/Adverse Reactions: Allergies No Known Allergies Allergy (Verified 01/22/18 19:42) Medications to take at Discharge Docusate Sodium [Dok] 100 mg PO BID 01/22/18 Ferrous Sulfate [Iron] 325 mg PO DAILY 01/22/18 Ibuprofen 600 mg PO Q6H PRN PRN #30 tab 01/23/18 Oxycodone [Oxyir] 5 - 10 mg PO Q4H PRN PRN 7 Days #28 tab 01/23/18 Sertraline HCl [Zoloft] 25 mg PO DAILY tablet 01/25/18 The following prescriptions were given: Oxycodone [Oxyir] 5 - 10 mg PO Q4H PRN PRN 7 Days #28 tab PRN Reason: Mod-Severe Pain (4-03/27) Ibuprofen 600 mg PO Q6H PRN PRN #30 tab PRN Reason: pain or cramping Follow-Up: Call to make an appointment with your doctor for an incision check in 1-2 weeks. You will also need a 6 week post- follow up appointment. Test results from this visit will be discussed in further detail at your follow-up appointment, if applicable. Please Follow Up With: Ani Isaac MD When: 1-2 weeks Proposed Discharge Date: 01/26/18 01/25/18 1359 <Electronically signed by Ani Isaac MD> Date Ani Isaac MD CC: DISCHARGE SUMMARY Observed: 01/25/2018 Status: F Source: NITESH 2:01 PM [facility] REPOSITORY [facility] Medical Records Department [address] [place] [address] Discharge Summary 01/25/18 1354 MR#: [id number] Acct: [id number] Name: CHERIE CARR Rep #: [id number] : 1995 22 From: Ani Kapoor MD PCP: Status: ADM IN Location: PC526-5 Discharge Date and Diagnosis Date of Admission: 01/22/18 Date of Discharge: 01/25/18 - Secondary Discharge Diagnosis Chronic Problems Arrest of dilation, delivered, current hospitalization (Chronic) Hospital Course and Treatment Consultations 01/22/18 18:55 Consult: Anesthesia Routine Comment: Reason For Exam: labor Operations: - - section Summary of Care Provided: The patient is a 22 year old F 1 admitted at 39+ weeks gestation with h/o gestational diabetes, gestational hypertension for induction of labor. She underwent a low transverse section on hospital day #2 for failed induction with arrest of dilation at 4cm. She was restarted on Zoloft post-operatively. Her postop course was otherwise unremarkable and she was discharged to home on post-operative day #2. Discharge Diet: No Restrictions Discharge Activity: Return to Normal Activity, May Not Drive, May not drive while taking narcotic pain medications., May Shower Return to work on:: 03/25/18 May shower in (days): 0 May resume sexual activity in: 4-6 weeks Call your doctor if your incision/area has: Sudden Increased Bleeding, Increased Pain/ Swelling, Increased Redness, Foul Smelling Discharge, Swelling at the incision site Call your doctor if you observe: Fever of 101 or Higher, Inability to urinate, Inability to have a bowel movement, Using more than one pad per hour, Shortness of breath, Chest pain, Calf discomfort, Uncontrolled pain Remove Dressing in (days):: 2 Cleanse incision/area with: Soap AND Water Home Medications: Medications to take at Discharge Docusate Sodium [Dok] 100 mg PO BID 01/22/18 Ferrous Sulfate [Iron] 325 mg PO DAILY 01/22/18 Ibuprofen 600 mg PO Q6H PRN PRN #30 tab 01/23/18 Oxycodone [Oxyir] 5 - 10 mg PO Q4H PRN PRN 7 Days #28 tab 01/23/18 Labetalol [Trandate (Beta Loretta)] 100 mg PO BID tablet 01/25/18 Sertraline HCl [Zoloft] 25 mg PO DAILY tablet 01/25/18 Following Prescrptions Were Given to Patient: Oxycodone [Oxyir] 5 - 10 mg PO Q4H PRN PRN 7 Days #28 tab PRN Reason: Mod-Severe Pain () Ibuprofen 600 mg PO Q6H PRN PRN #30 tab PRN Reason: pain or cramping Please Follow Up With: Ani Isaac MD Medical Necessity - Tobacco Use Smoking Status: Never smoker Meaningful Use Info Meaningful Use Diagnoses (Choose all that apply): None applicable 01/25/18 1401 <Electronically signed by Ani Isaac MD> Date Ani Isaac MD Cosigner Signature (if applicable): Date CC: MAINTENANCE TRUCK DRIVER-BC Gosia Burt; Ani Isaac MD Signed CBC-COMPLETE BLOOD CNT Collected: 01/24/2018 Status: F Source: [place] NO DIFF 6:25 AM [facility] REPOSITORY Order Comment: Comments: Day #1 Reason for Laboratory Test TYPE CODE TESTS RESULT OUT OF RANGE REFERENCE UNITS LAB L100.1000 4.4-11.0 K/mm3 High WBC 13.5 LAB L100.1200 4.2-5.4 M/mm3 Low RBC 4.17 LAB L100.1300 12.0-15.0 g/dl Low HGB 11.4 LAB L100.1400 37-47 % Low HCT 35.3 LAB L100.1500 81-99 fL Normal MCV 84.7 LAB L100.1600 27.0-32.0 pg Normal MCH 27.3 LAB L100.1700 32-36 g/gl Normal MCHC 32.3 LAB L100.1810 11.6-14.6 % High RDW CV 18.1 LAB L100.1820 35.1-43.9 fl High RDW SD 56.0 LAB L100.1900 150-450 K/mm3 Low PLT 143 LAB L100.2000 6.2-12.0 fl Normal MPV 9.8 Performed By: #### L100.0500 #### [facility] [place], [address] BEDSIDE GLUCOSE Collected: 01/23/2018 Status: F Source: NITESH 9:55 PM [facility] REPOSITORY TYPE CODE TESTS RESULT OUT OF RANGE REFERENCE UNITS LAB L501.080 70-110 mg/dL Normal BEDSIDE GLU 86 Result Comment: MANAGEMENT OF PATIENT CARE PER NURSING PROTOCOL Performed By: #### L501.080 #### [facility] Point of Care [address] [place] [address] OPERATIVE REPORT Observed: 01/23/2018 Status: F Source: NITESH 8:40 PM [facility] REPOSITORY [facility] Medical Records Department [address] [place] [address] Operative Report 01/23/182035 MR#: [id number] Acct: [id number] Name: CHERIE CARR Rep #: [id number] : 1995 22 From: Julian Lodr MD PCP: Status: ADM IN Y [facility] - Problem List (1) Arrest of dilation, delivered, current hospitalization Status: Chronic Delivery Classification: ASHER Final LISSETH: 01/29/18 Final LISSETH Source: US <20 weeks Gestational age: 39 Weeks and 1 Days Indications for : Sec. Arrest of Dilitation Description of Procedure: Maximum dilation 4 cm despite adequate contractions for greater than 10 hours. Delivery of a live male with APGARs of 8/8. Normal appearing uterus, ovaries, and fallopian tubes. Amniotic Membrane Rupture Type: Artificial Amniotic Fluid Description: Clear Placenta Disposition: [facility] Specimen(s) sent to pathology: cord blood Drain: Klein to straight drain Fluids Replaced: 1500cc LR Cord Entanglement: None Nuchal Cord Compression: Without compression Cord Vessel Description: 3 Vessels Esitmated Blood Loss (ml): 600cc Gender: Male (1 minute): 8 (5 minute): 8 Pre-op Antibiotic Given: Ancef 2 grams IV x1 Pt instructed on risks of surgery: Bleeding, Infection, Injury to surrounding structure(s) including bowel and bladder - Admit VTE Documentation VTE Present on Admission: No VTE Mechan Device Prophylaxis: SCD's VTE Pharm Prophylaxis ordered?: No 01/23/182039 <Electronically signed by Julian Lord MD> Date Julian Lord MD CC: Julian Lord MD Signed OPERATIVE REPORT Observed: 01/23/2018 Status: F Source: [place] 8:36 PM [facility] REPOSITORY [facility] Medical Records Department [address] [place] [address] Operative Report 01/23/18 1934 MR#: [id number] Acct: [id number] Name: CHERIE CARR Rep #: [id number] : 1995 22 From: Julian Lord MD PCP: Status: ADM IN Location: ZS201-4 Problem List (1) Arrest of dilation, delivered, current hospitalization Status: Chronic Report of Operation Date of Procedure: 01/23/18 Pre-Operative Diagnosis: GDM A2, Gestational Hypertension, Arrest of labor at 4 cm, Failed induction Post-Operative Diagnosis: Same Surgery/Procedure Performed:: Primary Low Transverse Section Description of Surgical Findings:: Live male in vertex presentation. Apgars 8/8. Amniotic fluid clear. Normal appearing uterus, ovaries, and fallopian tubes. diesel powerplant supervisor: Nico Moran Type of Anesthesia:: Epidural Anesthesiologist: Ronak Kaufman Special Medications: none Specimen's removed: cord blood Drains: klein Estimated Blood Loss (mL): 600cc Fluids Replaced: 1500cc LR Description of Procedure: Cherie was taken to the OR with IV running. She was given two grams of Ancef intravenously for surgical prophylaxis. SCDs were in place and operational throughout the case. A klein catheter had been previously placed. Once here epidural was dosed and anesthesia was found to be adequate she was prepped and draped in the supine position with a leftward tilt. A Pfannensteil skin incision was then made with the scalpel about two cm above the symphysis pubis. The underlying subcutaneous tissue was dissected down to the level of fascia with blunt and sharp dissection. The fascia was then incised horizontally and this incision was extended bilaterally with the GENTILE scissors. The rectus muscles were then dissected off the lower and upper portions of the fascia. The rectus muscles were in the midline, the peritoneum was identified and entered sharply. The peritoneal defect was extended using blunt retraction. A bladder blade was placed. The vesicouterine peritoneum was identified, entered sharply and a bladder flap was created. The bladder blade was replaced. The lower uterine segment was then incised in a transverse fashion. Once the cavity was entered the uterine defect was extended using blunt lateral and superior traction. The baby's head was then delivered followed by the body. The nose and mouth were suctioned with a bulb suction. The cord was then clamped and cut. The baby was then handed off to the waiting nursery nursing staff for evaluation. The placenta was then delivered manually. The uterus was exteriorized and cleared of all clot and membranes. The uterine defect was then closed in two layers with #1 Vicryl suture. The posterior cul de sac was cleared of all clot and fluid. The uterus was returned to the abdomen. The gutters were then cleared of clot and fluid. The uterine incision was reinspected and found to be hemostatic. The peritoneum was then closed with a running stitch of 2-0 Vicryl. The rectus muscles were reapproximated with interrupted sutures of 0-Vcryl. The fascia was closed with a running stitch of #1 Stratofix suture. The subcutaneous tissue was closed with 2-0 Vicryl. The skin was closed with a subcuticular stitch of 4-0 Monocryl suture. Sponge, lap, needle, and instrument counts were correct. She was taken to the recovery room in stable condition. Grafts/Implants Used: none - Complications none - Admit VTE Documentation VTE Present on Admission: No VTE Mechan Device Prophylaxis: SCD's VTE Pharm Prophylaxis ordered?: No 01/23/182035 <Electronically signed by Julian Lord MD> Date Julian Lord MD CC: Julian Lord MD Signed DISCHARGE INSTRUCTION Observed: 01/23/2018 Status: F Source: [place] 7:34 PM [facility] REPOSITORY [facility] Medical Records Department [address] [place] [address] Instructions for Home/Discharge Instructions 01/23/18 193 MR#: [id number] Acct: [id number] Name: CHERIE CARR Rep #: [id number] : 1995 22 From: Julian Lord MD PCP: Status: ADM IN Discharge Diet: No Restrictions Discharge Activity: Return to Normal Activity, May Not Drive, May not drive while taking narcotic pain medications., May Shower Return to work on:: 03/25/18 May shower in (days): 0 May resume sexual activity in: 4-6 weeks Call your doctor if your incision/area has: Sudden Increased Bleeding, Increased Pain/ Swelling, Increased Redness, Foul Smelling Discharge, Swelling at the incision site Call your doctor if you observe: Fever of 101 or Higher, Inability to urinate, Inability to have a bowel movement, Using more than one pad per hour, Shortness of breath, Chest pain, Calf discomfort, Uncontrolled pain Remove Dressing in (days):: 2 Cleanse incision/area with: Soap AND Water Additional Instructions: If you experience any of the following, contact your healthcare provider. * Bleeding that soaks a pad every hour for 2 hours * Fever 100.4 or higher * Unrelieved incision or abdominal pain * Swelling, redness, discharge or bleeding from your incision or episiotomy site * Your incision begins to separate * Problems urinating (including inability to urinate or burning while urinating). * Visual changes * Severe headache * Flu-like symptoms * Pain or redness in one of both of your breasts * Pain, warmth, tenderness or swelling in your legs, especially the calf area * Frequent nausea and vomiting * Symptoms of depression or anxiety If you experience any of the following, call 911 or go to the nearest Emergency Room. * Chest pain * Problems breathing * Seizure activity * Partial or complete paralysis of a body part, slurred speech, weakness or drooping of the face, or a sudden inability to walk or hold your balance Allergies/Adverse Reactions: Allergies No Known Allergies Allergy (Verified 01/22/18 19:42) Medications to take at Discharge Docusate Sodium [Dok] 100 mg PO BID 01/22/18 Ferrous Sulfate [Iron] 325 mg PO DAILY 01/22/18 Labetalol [Trandate (Beta Loretta)] 100 mg PO BID 01/22/18 Ibuprofen 600 mg PO Q6H PRN PRN #30 tab 01/23/18 Oxycodone [Oxyir] 5 - 10 mg PO Q4H PRN PRN 7 Days #28 tab 01/23/18 The following prescriptions were given: Oxycodone [Oxyir] 5 - 10 mg PO Q4H PRN PRN 7 Days #28 tab PRN Reason: Mod-Severe Pain (4-10/10) Ibuprofen 600 mg PO Q6H PRN PRN #30 tab PRN Reason: pain or cramping Follow-Up: Call to make an appointment with your doctor for an incision check in 1-2 weeks. You will also need a 6 week post- follow up appointment. Test results from this visit will be discussed in further detail at your follow-up appointment, if applicable. Please Follow Up With: Ani Isaac MD Proposed Discharge Date: 01/26/18 01/23/181933 <Electronically signed by Julian Lord MD> Date Julian Lord MD CC: BEDSIDE GLUCOSE Collected: 01/23/2018 Status: F Source: [place] 7:22 PM [facility] REPOSITORY TYPE CODE TESTS RESULT OUT OF REFERENCE UNITS RANGE LAB L501.080 70-110 mg/dL Low BEDSIDE GLU 67 Result Comment: MANAGEMENT OF PATIENT CARE PER NURSING PROTOCOL Performed By: #### L501.080 #### [facility] Point of Care [address] [facility]. [place], [place] [address] BEDSIDE GLUCOSE Collected: 01/23/2018 Status: F Source: [place]IT[place] 4:19 PM [facility] REPOSITORY TYPE CODE TESTS RESULT OUT OF REFERENCE UNITS RANGE LAB L501.080 70-110 mg/dL Low BEDSIDE GLU 62 Result Comment: MANAGEMENT OF PATIENT CARE PER NURSING PROTOCOL Performed By: #### L501.080 #### [facility] Point of Care [address] [place] [address] BEDSIDE GLUCOSE Collected: 01/23/2018 Status: F Source: [place]IT[place] 4:01 PM [facility] REPOSITORY TYPE CODE TESTS RESULT OUT OF REFERENCE UNITS RANGE LAB L501.080 70-110 mg/dL Low BEDSIDE GLU 61 Result Comment: Snack Given MANAGEMENT OF PATIENT CARE PER NURSING PROTOCOL Performed By: #### L501.080 #### [facility] Point of Care [address] [place] [address] BEDSIDE GLUCOSE Collected: 01/23/2018 Status: F Source: NIT[place] 10:30 AM [facility] REPOSITORY TYPE CODE TESTS RESULT OUT OF RANGE REFERENCE UNITS LAB L501.080 70-110 mg/dL Normal BEDSIDE GLU 105 Result Comment: MANAGEMENT OF PATIENT CARE PER NURSING PROTOCOL Performed By: #### L501.080 #### [facility] Point of Care [address] [place] [address] BEDSIDE GLUCOSE Collected: 01/23/2018 Status: F Source: NIT[place] 6:31 AM [facility] REPOSITORY TYPE CODE TESTS RESULT OUT OF RANGE REFERENCE UNITS LAB L501.080 70-110 mg/dL Normal BEDSIDE GLU 78 Result Comment: MANAGEMENT OF PATIENT CARE PER NURSING PROTOCOL Performed By: #### L501.080 #### [facility] Point of Care [address] [place] [address] BEDSIDE GLUCOSE Collected: 01/23/2018 Status: F Source: NITESH 2:36 AM [facility] REPOSITORY TYPE CODE TESTS RESULT OUT OF RANGE REFERENCE UNITS LAB L501.080 70-110 mg/dL Normal BEDSIDE GLU 86 Result Comment: MANAGEMENT OF PATIENT CARE PER NURSING PROTOCOL Performed By: #### L501.080 #### [facility] Point of Care [address] [place] [address] BEDSIDE GLUCOSE Collected: 01/22/2018 Status: F Source: NIT[place] 10:27 PM [facility] REPOSITORY TYPE CODE TESTS RESULT OUT OF RANGE REFERENCE UNITS LAB L501.080 70-110 mg/dL Normal BEDSIDE GLU 94 Result Comment: MANAGEMENT OF PATIENT CARE PER NURSING PROTOCOL Performed By: #### L501.080 #### [facility] Point of Care [address] [place] [address] BEDSIDE GLUCOSE Collected: 01/22/2018 Status: F Source: NITESH 9:28 PM [facility] REPOSITORY TYPE CODE TESTS RESULT OUT OF REFERENCE UNITS RANGE LAB L501.080 70-110 mg/dL High BEDSIDE GLU 116 Result Comment: Dr Orders Followed MANAGEMENT OF PATIENT CARE PER NURSING PROTOCOL Performed By: #### L501.080 #### [facility] Point of Care [address] [place], [place] [address] BEDSIDE GLUCOSE Collected: 01/22/2018 Status: F Source: NITESH 8:13 PM [facility] REPOSITORY TYPE CODE TESTS RESULT OUT OF RANGE REFERENCE UNITS LAB L501.080 70-110 mg/dL Normal BEDSIDE GLU 107 Result Comment: MANAGEMENT OF PATIENT CARE PER NURSING PROTOCOL Performed By: #### L501.080 #### [facility] Point of Care [address] [facility] [address] [place], [place] [address] CBC-COMPLETE BLOOD CNT Collected: 01/22/2018 Status: F Source: NITESH NO DIFF 8:00 PM [facility] REPOSITORY TYPE CODE TESTS RESULT OUT OF RANGE REFERENCE UNITS LAB L100.1000 4.4-11.0 K/mm3 Normal WBC 8.4 LAB L100.1200 4.2-5.4 M/mm3 Normal RBC 4.48 LAB L100.1300 12.0-15.0 g/dl Normal HGB 12.2 LAB L100.1400 37-47 % Normal HCT 37.8 LAB L100.1500 81-99 fL Normal MCV 84.4 LAB L100.1600 27.0-32.0 pg Normal MCH 27.2 LAB L100.1700 32-36 g/gl Normal MCHC 32.3 LAB L100.1810 11.6-14.6 % High RDW CV 17.9 LAB L100.1820 35.1-43.9 fl High RDW SD 55.9 LAB L100.1900 150-450 K/mm3 Normal PLT 158 LAB L100.2000 6.2-12.0 fl Normal MPV 9.6 Performed By: #### L100.0500 #### [facility] [address] [place], [place], [id number] TYPE AND SCREEN Collected: 01/22/2018 Status: F Source: NITESH 8:00 PM [facility] REPOSITORY Order Comment: Reason for Type AND Screen/Red Cells: ROUTINE TYPE CODE TESTS RESULT OUT OF RANGE REFERENCE UNITS LAB B10.0800 O Normal BLOOD TYPE GEL POSITIVE LAB B100.4000 Normal Antibody NEGATIVE Screen Performed By: #### B101.7450 #### [facility] [address] [place], [address] FREE T3 Collected: 01/15/2018 Status: F Source: [place] 11:56 AM [facility] REPOSITORY TYPE CODE TESTS RESULT OUT OF RANGE REFERENCE UNITS LAB L501.32445 2.18-3.98 pg/mL Normal FREE T3 2.9 Performed By: #### L501.35755, L501.9520, L506.0400 #### [facility] [address] [place], [address] THYROID STIM HORMONE Collected: 01/15/2018 Status: F Source: [place] (TSH) 11:56 AM [facility] REPOSITORY TYPE CODE TESTS RESULT OUT OF RANGE REFERENCE UNITS LAB L501.9520 0.358-3.74 uIU/mL Normal TSH 1.52 Performed By: #### L501.34038, L501.9520, L506.0400 #### [facility] [place], [address] T4 FREE DIRECT Collected: 01/15/2018 Status: F Source: [place] 11:56 AM [facility] REPOSITORY TYPE CODE TESTS RESULT OUT OF REFERENCE UNITS RANGE LAB L506.0400 0.76-1.46 ng/dL Low T4 FREE 0.73 DIRECT Performed By: #### L501.95728, L501.9520, L506.0400 #### [facility] [address] [place], [address] GROUP B STREP DNA Collected: 01/08/2018 Status: F Source: [place] BY PCR 11:20 AM [facility] REPOSITORY Order Comment: Source: Vaginal-Rectal TYPE CODE TESTS RESULT OUT OF RANGE REFERENCE UNITS LAB L8200.0100 Negative Normal GBS TEST Negative RESULT Performed By: #### L8200.0000 #### [facility] [facility] [place], [address] Observed: 01/08/2018 Status: F Source: [place] CULTURE, GROUP B 12:00 AM [facility] STREPTOCOCCUS REPOSITORY KEVIN Culture Group B Beta Streptococcus is not isolated. Performed By: #### M100.1800 #### [facility] [address] [place], [address] HIV - [facility] Collected: 12/24/2017 Status: F Source: [place] 11:57 AM [facility] REPOSITORY TYPE CODE TESTS RESULT OUT OF RANGE REFERENCE UNITS LAB L3890.6005 Nonreactive Normal HIV - [facility] Non-Reactive Performed By: #### L3890.6005 #### [facility] [address] [place], [address] RAPID PLASMIN REAGIN Collected: 12/24/2017 Status: F Source: [place] (RPR) 11:57 AM [facility] REPOSITORY TYPE CODE TESTS RESULT OUT OF REFERENCE UNITS RANGE LAB L700.5000 NONREACTIVE NONREACTIVE Normal RPR Performed By: #### L700.5000 #### [facility] [address] [place], [address] CT/NG [facility] BY PCR Collected: 12/24/2017 Status: F Source: [place] 11:30 AM [facility] REPOSITORY Order Comment: PLEASE RUN TESTING ON URINE SPECIMEN PROVIDED. TYPE CODE TESTS RESULT OUT OF RANGE REFERENCE UNITS LAB L8200.2100 Negative Normal Chlam Negative Trac PCR LAB L8200.2200 Negative Normal NG by Negative PCR Performed By: #### L8200.2000 #### [facility] [address] [place], [address] CBC Collected: 11/20/2017 Status: F Source: [facility] [facility] 12:00 PM [facility] REPOSITORY TYPE CODE TESTS RESULT OUT OF RANGE REFERENCE UNITS LAB CBC(LOINC) CBC Result Comment: CBC-COMPLETE BLOOD COUNT LAB WBC(LOINC) 4.5 - 10.8 x 10EE3/UL WBC 9.3 LAB RBC(LOINC) 4.10 - x 10EE6/UL 5.30 RBC 4.15 LAB HEMOGLOBIN(LOINC) 12.0 - g/dl 16.0 Low HEMOGLOBIN 10.8 LAB HEMATOCRIT(LOINC) 34.0 - % 46.0 Low HEMATOCRIT 32.8 LAB MCV(LOINC) 80 - 99 fl MCV Low 79 LAB MCH(LOINC) 27 - 33 pg MCH Low 26 LAB MCHC(LOINC) 32 - 36 X10 3 MCHC 33 LAB RDW/CV(LOINC) 12.0 - % 15.6 RDW/CV 14.2 LAB PLATELET(LOINC) 150 - 450 x10EE3/UL PLATELET 267 LAB MPV(LOINC) 6.6 - 10.5 fl MPV 8.1 Result Comment: AUTOMATED DIFFERENTIAL LAB NEUT %(LOINC) 46.0 - 76.0 % NEUT % 73.9 LAB LYMPH %(LOINC) 20.0 - 45.0 % LYMPH % Low 18.1 LAB MONOS %(LOINC) 0.0 - 10.0 % MONOS % 7.0 LAB EO %(LOINC) 0.0 - 7.0 % EO % 0.6 LAB BASO %(LOINC) 0.0 - 2.0 % BASO % 0.4 LAB Lymph #(LOINC) 0.80 - 2.80 x10EE3/U L Lymph # 1.70 LAB Neut #(LOINC) 1.50 - 7.10 x10EE3/U L Neut # 6.80 LAB Bent #(LOINC) 0.20 - 1.00 x10EE3/U L Bent # 0.60 LAB EO #(LOINC) 0.00 - 0.50 x10EE3/U L EO # 0.10 LAB Baso #(LOINC) 0.00 - 0.10 x10EE3/U L Baso # 0.00 LAB MANUAL DIFF(LOINC) MANUAL DIFF N/A LAB MORPHOLOGY(LOINC ) MORPHOLOGY N/A Result Comment: {CD] Performed By: #### [id number] #### [facility],[address] [place] [address] GLUCOSE CHALLENGE 50GM Collected: 11/20/2017 Status: F Source: [facility] 1 HOUR 12:00 PM [facility] REPOSITORY TYPE CODE TESTS RESULT OUT OF REFERENCE UNITS RANGE LAB GLUCOSE CHALLENGE 50GM 1 HOUR(LOINC) GLUCOSE CHALLENGE 50GM 1 HOUR Result Comment: GLUCOSE CHALLENGE 50 GMS 1 HOUR LAB GLUCOSE 70 - 140 mg/dl 1HR(LOINC) High GLUCOSE 1HR 150 Performed By: #### [id number] #### [facility],[address] [place] [id number] EMERGENCY REPORT Observed: 11/04/2017 Status: F Source: [facility] SIM 10:00 AM [facility] [place] [place] EMERGENCY ROOM REPORT NAME ACCOUNT SEX AGE ADMIT DISCHARGE PT MED. RECORD# NUMBER DATE DATE TYPE BRUNO [id number] F 10/29/17 10/29/17 3 CHERIE [id number] ROOM: ER DATE OF : 1995 DICTATING PHYSICIAN: Jung Da Silva HISTORY OF PRESENT ILLNESS: The patient came in. The patient was complaining of swelling. She felt like she was just swelling. She also had some facial swelling, more yesterday which has resolved today. She also complains of some urination issues, which it kind of rodriguez. She had some pain in the left flank area, which has resolved, and she presents to the emergency department. She called her doctor, and they told her to come in to be evaluated. She denied any chest pain. No shortness of breath. She denies any nausea or vomiting. She is 27 weeks . PAST MEDICAL HISTORY: She has had no medical issues. PAST SURGICAL HISTORY: No surgeries. SOCIAL HISTORY: She does not smoke or drink. She is here with her significant other. REVIEW OF SYSTEMS: Ten systems reviewed and negative except as mentioned above. PHYSICAL EXAMINATION: She is afebrile. Blood pressure 150/103, pulse 87, respirations 18, and pulse ox 98% on room air. Head is normocephalic and atraumatic. Eyes: Pupils are equal, round, and reactive to light. Extraocular muscles intact. Nares are patent. Throat has adequate oral moisture. Uvula is midline. Neck is supple without petechiae or rash. Heart without murmur. S1 equals S2. No S3 or S4 appreciated. Lungs are clear to auscultation bilaterally. No rales, rhonchi, or retractions. Abdomen is soft, nontender, and nondistended. Skin is warm and dry. EMERGENCY DEPARTMENT COURSE AND TREATMENT: I did not notice any obvious facial swelling. Dictated By: Jung Da Silva DO 10/29/17 11:03 JOB #: [id number] Transcribed By: am 10/29/17 17:46 Electronically signed by: JOSE A Da Silva D.O. Page 1 of 2 CHERIE CARR Emergency Room Report 11/04/17 09:59 Page 2 of 2 CHERIE CARR Emergency Room Report URINALYSIS Collected: 10/29/2017 Status: F Source: [place] 9:20 AM [facility] REPOSITORY TYPE CODE TESTS RESULT OUT OF REFERENCE UNITS RANGE LAB URINALYSIS (LOINC) URINALYSIS Result Comment: URINALYSIS LAB Specimen Type(LOINC) Specimen UNSPECIFIED Type LAB Color(LOINC) NORMAL: YELLOW Color p.yel LAB Clarity(LOINC) NORMAL: CLEAR Clarity sl.cloudy LAB ph(LOINC) NORMAL: 5.0-8.0 ph 7 LAB Protein(LOINC) NORMAL: NEGATIVE Protein NEG LAB Glucose(LOINC) NORMAL: NORMAL Glucose NORM LAB Ketone(LOINC) NORMAL: NEGATIVE Ketone NEG LAB Bilirubin(LOINC) NORMAL: NEGATIVE Bilirubin NEG LAB Blood(LOINC) NORMAL: NEGATIVE Blood NEG LAB Urobilinog(LOINC) NORMAL: NORMAL Urobilinog NORM LAB Sp Renner(LOINC) NORMAL: 1.010-1.030 Sp Renner 1.010 LAB Nitrite(LOINC) NORMAL: NEGATIVE Nitrite NEG LAB Leukocytes(LOINC) NORMAL: NEGATIVE Leukocytes NEG LAB Microscopic(LOINC ) Microscopic NOT INDICATED Performed By: #### [id number] #### [address] OB INITIAL >OR= Observed: 09/06/2017 Status: F Source: [facility]LL SIM 14 WEEKS; 1ST GESTAT 3:02 PM [place] [address] Patient: CHERIE CARR Phone#: : [phone] Age: 21 Gender: F Pt. Type: Out Account: [id number] Location: Ordering: GOSIA BURT Exam Date: 09/06/2017/13:59 Family Phys: BRANDEE AN Charge Code: [id number] Physician: [place] Order #: [id number] DLP Dose#: PROCEDURE: OB INITIAL >14 WEEKS ULTRASOUND, TRANSABDOMINAL COMPARISON: None. INDICATIONS: Size, Dates, Anatomy TECHNIQUE: Complete sonographic examination for obstetrical and evaluation were completed by transabdominal ultrasound. FINDINGS: NUMBER: Single. POSITION: Transverse with the head to the maternal right.. AMNIOTIC FLUID VOLUME: Normal for age with BRIAN of 13.52 cm. PLACENTA LOCATION: Posterior with no evidence of previa. BIPARIETAL DIAMETER: 20 weeks zero days HEAD CIRCUMFERENCE: 19 weeks 3 days ABD CIRCUMFERENCE: 20 weeks 2 days FEMUR LENGTH: 19 weeks 6 days ESTIMATED WEIGHT: Transverse 7.53 g plus or -49 g CERVICAL LENGTH: 5 cm HEART RATE: 152 bpm ANATOMY: The following structures are normal for age unless specified below: Ventricles, posterior fossa, spine, four chamber heart, thorax, abdomen, cord, stomach, kidneys, and bladder. ABNORMALITIES/OTHER: None. CLINICAL GA: 19 weeks 2 days CLINICAL LISSETH: January 29 2810 ULTRASOUND GA: 19 weeks 6 days ULTRASOUND LISSETH: February 04 CONCLUSION: 1. Single live intrauterine gestation with an unremarkable anatomic survey . [place] [address] Patient: CHERIE CARR Phone#: : [phone] Age: 21 Gender: F Pt. Type: Out Account: [id number] Location: Ordering: GOSIA BURT Exam Date: 09/06/2017/13:59 Family Phys: BRANDEE AN Charge Code: [id number] Physician: [place] Order #: [id number] DLP Dose#: Dictated by: Bruno Wallace MD on 09/06/2017 at 15:31 Approved by: Bruno Wallace MD on 09/06/2017 at 15:31 EMERGENCY DEPARTMENT Observed: 07/20/2017 Status: F [facility] EMERGENCY DEPARTMENT SUMMARY NAME NUMBER SEX AGE ADMIT DISC TYPE MED.RECORD# BRUNO BUCK [id number] F 07/16/17 07/16/17 Faby.RJosselyn [id number] ROOM:[facility] DATE OF :1995 PHYSICIAN NO.:[id number] PHYSICIAN NAME:JOSE A Da Silva D.O. PHYSICIAN:Kayode An HISTORY OF PRESENT ILLNESS: The patient came in. She was not feeling well. She has had nausea and vomiting. She has had some epigastric pain and presents to the emergency department. It is a sharp burning pain, intermittent pressure. She is 12 weeks . The pain is a 7 out of 10. It is worse with movement, taking a deep breath. She has had some fatigue. She had the pain, had nausea. PAST MEDICAL HISTORY: She has had a history of GERD. PAST SURGICAL HISTORY: Denies. SOCIAL HISTORY: She does not smoke or drink. REVIEW OF SYSTEMS: Ten systems reviewed and negative except as mentioned above. PHYSICAL EXAMINATION: The patient is afebrile. Blood pressure 136, pulse 114, respirations 18, and pulse ox 98% on room air. Head is normocephalic and atraumatic. Eyes: Pupils are equal, round, and reactive to light. Extraocular muscles intact. Nares are patent. Throat has adequate moisture. Uvula is midline. Neck is supple without petechiae or rash. Heart without murmur. S1 equals S2. No S3 or S4 appreciated. Lungs are clear to auscultation bilaterally. No rales, rhonchi, or retractions. Abdomen is soft, nontender, and nondistended. Skin is warm and dry. DIAGNOSTIC DATA: Urinalysis shows nitrite negative, leukocyte esterase negative. Her chemistries were unremarkable. Lipase was normal. White count 12,000, H&H 12 and 38. She also had an EKG, which showed a rate of 96, normal axis. No ST elevation of depression n. EMERGENCY DEPARTMENT COURSE AND TREATMENT: She was given 2 liters of fluid. She feels better at this time. DIAGNOSES: 1. Epigastric pain. 2. Dehydration. 3. . PLAN/DISPOSITION: She will be discharged in stable condition. D: Jung Da Silva DO TD: 22:28 JOB #: [id number] Electronically signed by: JOSE A Da Silva D.O. 07/20/17 12:27 Transcribed by: am 07/17/2017 19:17 ELECTRONICALLY SIGNED BY: JOSE A Da Silva D.O. 07/20/17 12:27 URINALYSIS Collected: 07/16/2017 Status: F Source: [facility] 9:20 PM [facility] REPOSITORY TYPE CODE TESTS RESULT OUT OF REFERENCE UNITS RANGE LAB URINALYSIS (LOINC) URINALYSIS Result Comment: URINALYSIS LAB Specimen Type(LOINC) Specimen Void Type LAB Color(LOINC) NORMAL: YELLOW Color p.yel LAB Clarity(LOINC) NORMAL: CLEAR Clarity clear LAB ph(LOINC) NORMAL: 5.0-8.0 ph 8 LAB Protein(LOINC) NORMAL: NEGATIVE Protein NEG LAB Glucose(LOINC) NORMAL: NORMAL Glucose NORM LAB Ketone(LOINC) NORMAL: NEGATIVE Ketone NEG LAB Bilirubin(LOINC) NORMAL: NEGATIVE Bilirubin NEG LAB Blood(LOINC) NORMAL: NEGATIVE Blood NEG LAB Urobilinog(LOINC) NORMAL: NORMAL Urobilinog NORM LAB Sp Renner(LOINC) NORMAL: 1.010-1.030 Sp Renner 1.015 LAB Nitrite(LOINC) NORMAL: NEGATIVE Nitrite NEG LAB Leukocytes(LOINC) NORMAL: NEGATIVE Leukocytes NEG LAB Microscopic(LOINC ) Microscopic NOT INDICATED Performed By: #### [id number] #### [facility],[address] [place] [address] CBC Collected: 07/16/2017 Status: F Source: [facility] 8:10 PM [facility] REPOSITORY TYPE CODE TESTS RESULT OUT OF RANGE REFERENCE UNITS LAB CBC(LOINC) CBC Result Comment: CBC-COMPLETE BLOOD COUNT LAB WBC(LOINC) 4.5 - 10.8 x 10EE3/UL WBC High 12.2 LAB RBC(LOINC) 4.10 - x 10EE6/UL 5.30 RBC 4.75 LAB HEMOGLOBIN(LOINC 12.0 - g/dl ) 16.0 HEMOGLOBIN 12.8 LAB HEMATOCRIT(LOINC 34.0 - % ) 46.0 HEMATOCRIT 38.3 LAB MCV(LOINC) 80 - 99 fl MCV 81 LAB MCH(LOINC) 27 - 33 pg MCH 27 LAB MCHC(LOINC) 32 - 36 X10 3 MCHC 33 LAB RDW/CV(LOINC) 12.0 - % 15.6 RDW/CV 14.6 LAB PLATELET(LOINC) 150 - 450 x10EE3/UL PLATELET 252 LAB MPV(LOINC) 6.6 - 10.5 fl MPV 7.7 Result Comment: AUTOMATED DIFFERENTIAL LAB NEUT %(LOINC) 46.0 - 76.0 % NEUT % 71.7 LAB LYMPH %(LOINC) 20.0 - 45.0 % LYMPH % 20.3 LAB MONOS %(LOINC) 0.0 - 10.0 % MONOS % 6.4 LAB EO %(LOINC) 0.0 - 7.0 % EO % 1.1 LAB BASO %(LOINC) 0.0 - 2.0 % BASO % 0.5 LAB Lymph #(LOINC) 0.80 - 2.80 x10EE3/U L Lymph # 2.50 LAB Neut #(LOINC) 1.50 - 7.10 x10EE3/U L Neut # High 8.70 LAB Bent #(LOINC) 0.20 - 1.00 x10EE3/U L Bent # 0.80 LAB EO #(LOINC) 0.00 - 0.50 x10EE3/U L EO # 0.10 LAB Baso #(LOINC) 0.00 - 0.10 x10EE3/U L Baso # 0.10 LAB MANUAL DIFF(INC) MANUAL DIFF N/A LAB MORPHOLOGY([facility] ) MORPHOLOGY N/A Result Comment: {CD] Performed By: #### [id number] #### [facility],[address] [place] [address] CMP WITH EGFR Collected: 07/16/2017 Status: F Source: [facility] 8:10 PM [facility] REPOSITORY TYPE CODE TESTS RESULT OUT OF RANGE REFERENCE UNITS LAB CMP with eGFR(INC) CMP with eGFR Result Comment: COMPREHENSIVE METABOLIC PANEL LAB SODIUM(LOINC) 136 - 145 mmol/l SODIUM 138 LAB POTASSIUM(LOINC) 3.5 - 5.1 mmol/L POTASSIUM 3.8 LAB CHLORIDE(LOINC) 98 - 107 mmol/L CHLORIDE 107 LAB CO2(LOINC) 21.0 - mmol/L 31.0 CO2 22.6 LAB GLUCOSE(LOINC) 74 - 106 mg/dl GLUCOSE High 107 LAB BUN(LOINC) 6 - 20 mg/dl BUN Low 4 LAB CREATININE(LOINC) 0.6 - 1.2 mg/dl Low CREATININE 0.5 LAB AST/SGOT(LOINC) 13 - 39 U/L AST/SGOT 18 LAB ALK PHOS(LOINC) 38 - 126 U/L ALK PHOS 41 LAB CALCIUM(LOINC) 8.6 - mg/dl 10.2 CALCIUM 9.3 LAB TOTAL 6.4 - 8.3 g/dl PROTEIN(LOINC) TOTAL PROTEIN 6.6 LAB ALBUMIN(LOINC) 3.4 - 4.8 g/dL ALBUMIN 4.3 LAB GLOBULIN(LOINC) 1.5 - 3.8 G/DL GLOBULIN 2.3 LAB A/G RATIO(LOINC) 0.9 - 1.6 A/G High RATIO 1.9 LAB TOTAL BILI(LOINC) 0.0 - 1.5 mg/dl TOTAL BILI 0.3 LAB B/C RATIO(LOINC) 0 - 30 ratio B/C RATIO 8 LAB ALT/SGPT(LOINC) 8 - 35 U/L ALT/SGPT 13 LAB ANION GAP(LOINC) 10 - 20 mmol/L ANION GAP 12 LAB AGE(LOINC) years AGE 21 LAB eGFR(LOINC) 60 - 999 ML/MINUTE eGFR >60 LAB eGFR(AA)(LOINC) 60 - 999 ML/MINUTE eGFR(AA) >60 Result Comment: ACCORDING TO THE NATIONAL KIDNEY DISEASE EDUCATION PROGRAM(NKDE), A NORMAL eGFR IS A VALUE GREATER THAN OR EQUAL TO 60 ML/MIN/1.73 SQ METERS. CHRONIC KIDNEY DISEASE: <60mL/MIN/1.73 SQ METERS KIDNEY FAILURE: <15mL/MIN/1.73 SQ METERS THIS TEST SHOULD ONLY BE USED FOR PATIENTS 18 YEARS OF AGE AND OLDER. Performed By: #### [id number] #### [place] [address] LIPASE Collected: 07/16/2017 Status: F Source: [facility] 8:10 PM [facility] REPOSITORY TYPE CODE TESTS RESULT OUT OF REFERENCE UNITS RANGE LAB LIPASE(LOIN 18.0 - 51.0 U/L C) Low LIPASE 17.0 Performed By: #### [id number] #### [place] [address] CBC Collected: 07/02/2017 Status: F Source: [facility] 9:55 AM [facility] REPOSITORY TYPE CODE TESTS RESULT OUT OF RANGE REFERENCE UNITS LAB CBC(LOINC) CBC Result Comment: CBC-COMPLETE BLOOD COUNT LAB WBC(LOINC) 4.5 - 10.8 x 10EE3/UL WBC 10.3 LAB RBC(LOINC) 4.10 - x 10EE6/UL 5.30 RBC 4.85 LAB HEMOGLOBIN(LOINC) 12.0 - g/dl 16.0 HEMOGLOBIN 13.5 LAB HEMATOCRIT(LOINC) 34.0 - % 46.0 HEMATOCRIT 39.4 LAB MCV(LOINC) 80 - 99 fl MCV 81 LAB MCH(LOINC) 27 - 33 pg MCH 28 LAB MCHC(LOINC) 32 - 36 X10 3 MCHC 34 LAB RDW/CV(LOINC) 12.0 - % 15.6 RDW/CV 14.5 LAB PLATELET(LOINC) 150 - 450 x10EE3/UL PLATELET 244 LAB MPV(LOINC) 6.6 - 10.5 fl MPV 8.2 Result Comment: AUTOMATED DIFFERENTIAL LAB NEUT %(LOINC) 46.0 - 76.0 % NEUT % 75.0 LAB LYMPH %(LOINC) 20.0 - 45.0 % Low LYMPH % 17.0 LAB MONOS %(LOINC) 0.0 - 10.0 % MONOS % 6.7 LAB EO %(LOINC) 0.0 - 7.0 % EO % 0.7 LAB BASO %(LOINC) 0.0 - 2.0 % BASO % 0.6 LAB Lymph #(LOINC) 0.80 - 2.80 x10EE3/U L Lymph # 1.70 LAB Neut #(LOINC) 1.50 - 7.10 x10EE3/U L Neut # High 7.70 LAB Bent #(LOINC) 0.20 - 1.00 x10EE3/U L Bent # 0.70 LAB EO #(LOINC) 0.00 - 0.50 x10EE3/U L EO # 0.10 LAB Baso #(LOINC) 0.00 - 0.10 x10EE3/U L Baso # 0.10 LAB MANUAL DIFF(LOINC) MANUAL DIFF N/A LAB MORPHOLOGY(LOINC ) MORPHOLOGY N/A Result Comment: {CD] Performed By: #### [id number] #### [facility],[address] [place] [id number] VITAMIN D, 25 Collected: 07/02/2017 Status: F Source: [facility] 9:55 AM [facility] REPOSITORY TYPE CODE TESTS RESULT OUT OF RANGE REFERENCE UNITS LAB VitD(LOINC) 30.00 - 100 ng/mL Low VitD 21.57 Result Comment: 25-OHD3 indicates both endogenous production and supplementation. 25-OHD2 is an indicator of exogenous sources, such as diet or supplementation. Therapy is based on measurement of Total 25-OHD, with levels <20 ng/mL indicative of Vitamin D deficiency, while levels between 20 ng/mL and 30 ng/mL suggest insufficiency. Optimal levels are >=30ng/mL. Vitamin D, 25-OH D3 Not Established Vitamin D, 25-OH D2 Not Established Performed By: #### [id number] #### [place] [id number] BB TYPE & SCREEN Collected: 07/02/2017 Status: F Source: [facility] 9:55 AM [facility] REPOSITORY TYPE CODE TESTS RESULT OUT OF REFERENCE UNITS RANGE LAB BB TYPE & SCREEN(LOIN C) BB TYPE & SCREEN Result Comment: TYPE, Rh, AND SCREEN LAB ABO(LOINC) ABO O LAB Rh(LOINC) Rh POS LAB ANTIBODY SCR(LOINC) ANTIBODY negative SCR Performed By: #### [id number] #### [place] [id number] TSH Collected: 07/02/2017 Status: F Source: [facility] 9:55 AM [facility] REPOSITORY TYPE CODE TESTS RESULT OUT OF RANGE REFERENCE UNITS LAB TSH(LOINC) 0.34 - 5.60 uIU/ml Low TSH 0.14 Performed By: #### [id number] #### [place] [id number] T4-FREE (FREE Collected: 07/02/2017 Status: F Source: [facility] THYROXINE) 9:55 [facility] REPOSITORY TYPE CODE TESTS RESULT OUT OF RANGE REFERENCE UNITS LAB T4 0.61 - 1.12 ng/dl FREE(LOINC) High T4 FREE 1.21 Result Comment: *SPECIMENS FROM PATIENTS WHO ARE UNDERGOING BIOTIN THERAPY AND/OR INGESTING BIOTIN SUPPLEMENTS MAY HAVE FALSE HIGH RESULTS. Performed By: #### [id number] #### [place] [id number] HEP B SURFACE AG Collected: 07/02/2017 Status: F Source: [facility] SIM [QUEST] 9:55 AM [facility] REPOSITORY TYPE CODE TESTS RESULT OUT OF REFERENCE UNITS RANGE LAB HEP B SURFACE AG [QUEST](LOINC ) HEP B SURFACE AG [QUEST] Result Comment: _HEP B SURFACE AG_ HEPATITIS B SURFACE ANTIGEN W/RFLX TO CONFIRM. Reported: 07/04/2017 04:50 Status=F TEST RESULT FLAG RANGE UNITS HEPATITIS B SURFACE AG Nonreactive Nonreactive 07/04/17.050.rfl.COMPLETE.AMRR .5196-1 CONFIRMATION see below 07/04/17050.rfl.COMPLETE.AMRR .7905-3 Not required according to the current package insert. Test Performed by [facility] [place], [facility], [address] [place] [id number] Dre Kapoor M.D., Ph.D., Director of [employer] , [facility] [id number] Performed By: #### [id number] #### [facility],[address] [place] [address] VARICELLA ZOSTER AB Collected: 07/02/2017 Status: F Source: [facility] BANSALALEXANDRA (IGG) [QUEST] 9:55 [facility] REPOSITORY TYPE CODE TESTS RESULT OUT OF REFERENCE UNITS RANGE LAB VARICELLA ZOSTER AB (IGG) [QUEST](LOINC) VARICELLA ZOSTER AB (IGG) [QUEST] Result Comment: _VARICELLA ZOSTER AB (IGG)_ VARICELLA-ZOSTER VIRUS ANTIBODY (IGG) Reported: 07/04/2017 08:36 Status=F TEST RESULT FLAG RANGE UNITS VZV ANTIBODY (IGG) 272.80 >=165.00 Index 07/04/17.0847.rfl.[facility].AMRR .5403-1 A positive result indicates that the patient has antibody to VZV but does not differentiate between an active or past infection. The clinical diagnosis must be interpreted in conjunction with the clinical signs and symptoms of the patient. This assay reliably measures immunity due to previous infection but may not be sensitive enough to detect antibodies induced by vaccination. Thus, a negative result in a vaccinated individual does not necessarily indicate susceptibility to VZV infection. Index Interpretation ===== < 135.00 Negative - Antibody not detected 135.00 - 164.99 Equivocal > or = 165.00 Positive - Antibody detected Test Performed by [facility], [facility], [address] [place] [address] Dre Kapoor M.D., Ph.D., Director of Laboratories , [facility] [id number] Performed By: #### [id number] #### [facility],[address] [place] [address] MMR PROFILE Collected: 07/02/2017 Status: F Source: [facility] 9:55 AM [facility] REPOSITORY TYPE CODE TESTS RESULT OUT OF REFERENCE UNITS RANGE LAB MMR PROFILE(IRVING UT) MMR PROFILE Result Comment: _MMR PROFILE_ MMR (IGG) PANEL (MEASLES, MUMPS, RUBELLA) Reported: 07/04/2017 20:53 Status=F TEST RESULT FLAG RANGE UNITS MEASLES ANTIBODY (IGG) 44.80 >29.99 AU/mL 07/04/17.2104.rfl.COMPLETE.AMRR .5244-9 AU/mL Interpretation ===== <25.00 Negative 25.00 - 29.99 Equivocal >29.99 Positive A positive result indicates that the patient has antibody to measles virus. It does not differentiate between an active or past infection. The clinical diagnosis must be interpreted in conjunction with clinical signs and symptoms of the patient. MUMPS VIRUS ANTIBODY <9.00 L >10.99 AU/mL 07/04/17.2104.rfl.COMPLETE.AMRR .21923-4 (IGG) AU/mL Interpretation < 9.00 Negative 9.00 - 10.99 Equivocal > 10.99 Positive A positive result indicates that the patient has antibody to Mumps Virus. It does not differentiate between an active or past infection. The clinical diagnosis must be interpreted in conjunction with the clinical signs and symptoms of the patient. RUBELLA ANTIBODY (IGG) 1.67 >=1.00 Index 07/04/17.rfl.COMPLETE.AMRR .5334-8 INDEX INTERPRETATION < 0.90 Not consistent with Immunity 0.90 - 0.99 Equivocal > or = 1.00 Consistent with Immunity The presence of Rubella IgG antibody suggests immunization or past or current infection with Rubella virus. Test Performed by [facility], [facility], [address] [place] [address] Dre Kapoor M.D., Ph.D., Director of Laboratories , [facility] [id number] Performed By: #### [id number] #### [facility],[address] [place] [address] ALLERGIES ALLERGIES DATE TYPE / CODE NAME / CODE REACTION SEVERITY SOURCE 01/22/2018 Drug No Known Unknown [place] Allergy/522316678(S Allergies/F0019 [facility] NOMED CT) [address]150(RXNORM) Hospital Repository Miscellaneous No Known Drug Moderate [facility] Allergy/535074121(S Allergies ([facility] NOMED CT) Modifier) Hospital (Qualifier Repository Value) ENCOUNTERS ENCOUNTERS ADMIT/DISCHARGE ACCOUNT ADMITTING ENCOUNTER LOCATION SOURCE NUMBER CLASS 05/16/2018 [id number] Ambulatory [place] Nitesh 4 [facility] ing:WOBLAB Repository 03/05/2018 [id number] Ambulatory [place] Nitesh 3 [facility] ing:WOBLAB Repository 01/22/2018/ [id number] Mihirkos, Inpatient [place] 8 9 Gabriela Encounter [facility] ing:WPRoom: Repository JW578Oad: 1 01/15/2018 [id number] Ambulatory N[place] Nitesh 1 [facility] ing:WOBLAB Repository 01/08/2018 [id number] Ambulatory [place] Nitesh 6 [facility] ing:LABSPEC Repository 01/07/2018/ [id number] [facility] [address] Repository 12/24/2017 [id number] [facility] 8 [facility] ing:WOBLAB Repository 11/20/2017/ [id number] GOSIA BURT Ambulatory [address] Repository 10/29/2017/ [id number] DR REKHA [facility] [place] [address] JUNG fosterom: ERBed: C [facility] Repository 09/06/2017/ [id number] CHENTE [address] Repository 07/16/2017/ [id number] DR REKHA [facility] [place] [address] JUNG fosterom: ERBed: G [facility] Repository 07/02/2017/ [id number] CHENTE [address] Repository PAYERS PAYERS ENCOUNTER GUARANTOR PAYER SUBSCRIBER SOURCE 05/16/2018 CHERIE Ramos Primary NOT GIVENUNK [place] [id number] CR Insurance:SELF PAY [address] [address]Ked: Number: Effective Repository Date:2018-05-16 () 03/05/2018 CHERIE Ramos Primary NOT GIVENUNK Nitesh [id number] CR Insurance:SELF PAY [address] [address]Gvv: Number: Effective Repository Date:2018-03-05 () 01/22/2018 CHERIE Ramos Primary Insurance:[facility] CHERIE Ramos [place] [id number] CR [facility] CARRDOB: [address], Number: [id number] [address]Ngu: [id number] Repository Date:2018-01-08 () 01/22/2018 Secondary NOT GIVENUNK [place] Insurance:SELF PAY [place] Number: Effective Repository Date:2018-01-08 01/15/2018 CHERIE Primary NOT GIVENUNK [place] [id number] CR Insurance:SELF PAY [address] [address]Qnk: Number: Effective Repository Date:2018-01-15 () 01/08/2018 CHERIE Primary NOT GIVENUNK Nitesh [id number] CR Insurance:SELF PAY [address] [address]Tzz: Number: Effective Repository Date:2018-01-08 (HP) 12/24/2017 CHERIE Primary NOT GIVENUNK [facility]5147 Insurance:SELF PAY [address], Number: Effective Repository [place] [address]Yog: Date:2017-12-24 (HP) 09/06/2017 CHERIE Primary CHEIREFaby Sim BENJYB: Insurance:RADIOLOGY DOMONIQUE: [facility] [id number] [facility] Number: [id number] Hospital CR Effective Date: CR Repository [address] [place] [address], [address] [place] [address], [place] [id number]: [place] [phone] ()
== END ==
PROVIDERS: Visit Provider Obstetrics & Gynecology
DX: Z86.32 Personal history of gestational diabetes (principal); Z12.4 Encounter for screening for malignant neoplasm of cervix; Z68.30 Body mass index [BMI] 30.0-30.9, adult
CPT/HCPCS: 36415; 83036; 88175; G0145

== ENCOUNTER → 2019-05-20 10:13 | Outpatient (CLI) | payer SELFPAY ==
[2019-05-20 14:22] LABS: Hemoglobin A1c 5.7 % (4.2-6.3)
[2019-05-20 14:47] LABS: Vitamin D,25 Hydroxy 22.2 ng/mL (29.95-100.01)
== END ==
PROVIDERS: Visit Provider Obstetrics & Gynecology
DX: Z86.32 Personal history of gestational diabetes (principal)
CPT/HCPCS: 36415; 82306; 83036

== ENCOUNTER → 2019-07-01 16:15 | Outpatient (CLI) | payer SELFPAY ==
[2019-07-02 15:32] LABS: Chlamydia Trachomatis by PCR Negative (Negative); Neisserai gonorrhoeae by PCR Negative (Negative); Probe Check PASS; Sample Adequacy Control PASS; Specimen Processing Control PASS
== END ==
PROVIDERS: Visit Provider Obstetrics & Gynecology
DX: Z34.81 Encounter for supervision of other normal pregnancy, first trimester (principal); Z11.3 Encounter for screening for infections with a predominantly sexual mode of transmission
CPT/HCPCS: 87491; 87591

== ENCOUNTER → 2019-07-30 15:12 | Outpatient (CLI) | payer SELFPAY ==
[2019-07-30 15:54] LABS: Absolute Lymphocyte Count 2.16 X10^3/uL (0.83-4.51); Absolute Neutrophil Count 8.6 X10^3/uL (2.0-7.7); Basophil# 0.04 X10^3/uL; Basophil% 0.3 % (0-1); Eosinophil# 0.08 X10^3/uL; Eosinophils% 0.7 % (0-5); Hematocrit 36.5 % (37-47); Lymphocyte # 2.16 X10^3/ul (4.0); Lymphocyte % 18.6 % (19-41); Mean Corp Hgb Conc 32.9 g/dL (32-36); Mean Corpuscular Hgb 26.7 pg (27.0-32.0); Mean Corpuscular Volume 81.3 fL (81-99); Mean Platelet Vol. 9.4 fl (6.2-12.0); Monocyte# 0.69 X10^3/uL; Monocyte% 5.9 % (0-10); NRBC Flagged by Analyzer 0 % (0-5); Neutrophil # 8.61 X10^3/uL (2.7-7.7); Platelet Count 232 K/mm3 (150-450); RBC Distribution Width CV 13.3 % (11.6-14.6); RBC Distribution Width SD 39.4 fl (35.1-43.9); Red Blood Count 4.49 M/mm3 (4.2-5.4); White Blood Count 11.6 K/mm3 (4.4-11.0)
[2019-07-30 15:57] LABS: Color, Urine Yellow (Yellow); Glucose, Dipstick 100 mg/dl (Normal); Ketone-Dipstick 15 mg/dl (Negative); Leukocyte Esterase-Dipstick Negative /ul (Negative); Nitrite-Dipstick Negative (Negative); Occult Blood-Urine 25 /ul (Negative); Protein-Dipstick 15 mg/dl (Negative); Specific Gravity, Urine 1.025 (1.002-1.030); Urine Bilirubin Dipstick Negative (Negative); Urine Clarity Sl. Cloudy (Clear); Urine Urobilinogen Normal (Normal)
[2019-07-30 16:47] LABS: Glucose 114 mg/dL (74-106)
[2019-07-30 16:49] LABS: Amphetamine Urine VISTA NEGATIVE (<1000 ng/mL); Barbiturate Urine VISTA NEGATIVE (< 200 ng/mL); Benzodiazepine Urine VISTA NEGATIVE (< 200 ng/mL); Cocaine Urine VISTA NEGATIVE (< 300 ng/mL); Ecstacy Urine VISTA NEGATIVE (< 500 ng/mL); Methadone Urine VISTA NEGATIVE (< 300 ng/mL); PCP Urine VISTA NEGATIVE (< 25 ng/mL); THC Urine VISTA NEGATIVE (< 50 ng/mL); Vista UDS pH Range 6
[2019-07-31 02:39] LABS: Prenatal RPR NONREACTIVE (NONREACTIVE)
[2019-07-31 10:22] LABS: HIV - WCH Non-Reactive (Nonreactive); Hepatitis B Surface Antigen Non-Reactive (Nonreactive); Hepatitis C Antibody Non-Reactive (Nonreactive); Rubella IgG 25.1 IU/mL; Vitamin D,25 Hydroxy 19.2 ng/mL (29.95-100.01)
[2019-07-31 13:57] LABS: Ferritin 11 ng/mL (8-252)
== END ==
PROVIDERS: Visit Provider Obstetrics & Gynecology
DX: Z34.82 Encounter for supervision of other normal pregnancy, second trimester (principal)
CPT/HCPCS: 36415; 80307; 81002; 82306; 82728; 82947; 84443; 85025; 86703; 86762; 86803; 87340

== ENCOUNTER → 2019-10-01 | Outpatient (CLI) | payer OTHER, SELFPAY | END | disposition home or self-care (01) | PROVIDERS: Referring Provider Obstetrics & Gynecology; Visit Provider Obstetrics & Gynecology | DX: Z34.82 Encounter for supervision of other normal pregnancy, second trimester (principal) | CPT/HCPCS: 87086; 87088 ==

== ENCOUNTER → 2019-12-30 | Outpatient (CLI) | payer OTHER, SELFPAY | END | disposition home or self-care (01) | LOC: LABSPEC 16:11 | PROVIDERS: Visit Provider Obstetrics & Gynecology | DX: Z36.85 Encounter for antenatal screening for Streptococcus B (principal) | CPT/HCPCS: 87081 ==

== ENCOUNTER 2020-01-20 05:00 | Inpatient (IN) | payer SELFPAY ==
[2020-01-20] VITALS (25 sets, daily range): BP systolic 101–141; BP diastolic 18–84; PULSE 78–100; RESP 14–20; TEMP 36.4–37; O2SAT 95–99; BMI 41.5
[2020-01-20] MEDS: Lactated Ringers 1,000 ML 999 ML IV (05:27)
[2020-01-20] MEDS: Acetaminophen 500 MG Tablet 1000 MG PO ×4 (05:29→23:39)
[2020-01-20 05:47] LABS: Absolute Lymphocyte Count 2.08 X10^3/uL (0.83-4.51); Absolute Neutrophil Count 6.5 X10^3/uL (2.0-7.7); Basophil# 0.03 X10^3/uL; Basophil% 0.3 % (0-1); Eosinophil# 0.09 X10^3/uL; Eosinophils% 0.9 % (0-5); Hematocrit 36.3 % (37-47); Hemoglobin 12.1 g/dL (12.0-15.0); Lymphocyte # 2.08 X10^3/ul (4.0); Lymphocyte % 21.9 % (19-41); Mean Corp Hgb Conc 33.3 g/dL (32-36); Mean Corpuscular Hgb 28.7 pg (27.0-32.0); Mean Platelet Vol. 9.9 fl (6.2-12.0); Monocyte% 7.4 % (0-10); NRBC Flagged by Analyzer 0 % (0-5); Neutrophil # 6.54 X10^3/uL (2.7-7.7); Neutrophil % 69.1 % (47-70); Platelet Count 168 K/mm3 (150-450); RBC Distribution Width CV 13.2 % (11.6-14.6); RBC Distribution Width SD 40.4 fl (35.1-43.9); Red Blood Count 4.22 M/mm3 (4.2-5.4); White Blood Count 9.5 K/mm3 (4.4-11.0)
[2020-01-20 06:20] LABS: Bedside Glucose 97 mg/dL (70-110)
[2020-01-20] MEDS: Lactated Ringers 1,000 ML 150 ML IV (06:39)
[2020-01-20] MEDS: Sodium Citrate/Citric Acid 30 ML UDC PO (07:10)
[2020-01-20] MEDS: Cefazolin 2 GM in 0.9% Normal Saline 100 ML IV (07:19)
--- NOTE | 2020-01-20 07:20 | HP.PCM_ITS ---
- Problem List (1) 39 weeks gestation of Status: Acute History Date of Admission: 01/20/20 Final LISSETH: 01/24/20 Final LISSETH Source: US <20 weeks Gestational age: 39 Weeks and 3 Days History of this : This is a 24 year-old, G [2], P [1], at 39.3 weeks gestational age. Medical History: Medical History (Last Updated 01/20/20 @ 07:[address] Ani Kapoor MD) Depression F32.9 Gestational diabetes O24.419 Surgical History: Surgical History (Last Updated 01/20/20 @ 07:[address] Ani Kapoor MD) Previous section Z98.891 2018 - arrest of dilation Allergies No Known Allergies Allergy (Verified 01/20/20 05:22) Home Medications: Home Medications Ferrous Sulfate [Iron] 325 mg PO DAILY 01/22/18 Cholecalciferol (Vitamin D3) [Vitamin D3] 5,000 unit PO DAILY 01/20/20 Glyburide 2.5 mg PO DAILY 01/20/20 Smoking Status: Never smoker Alcohol: None Number of Fetus(es): 1 NST - FHR Rate Baby A Baseline: 156 bpm History Past Pregnancies: Past Pregnancies Delivery Date Name GA/ Weeks Outcome Route Wt Sex Labor Length Anesthesia Delivery Location Provider FOB 01/2018 Ferny 38 IOL, GDM 9lb3oz M 24 Epidural [facility] Labs: Mom's Labs & Results 01/20/20 01/20/20 01/20/20 05:27 05:27 05:45 WBC 9.5 RBC 4.22 Hgb 12.1 Hct 36.3 L MCV 86.0 MCH 28.7 MCHC 33.3 RDW Std Deviation 40.4 RDW Coeff of Vaughn 13.2 Plt Count 168 MPV 9.9 Immature Gran % (Auto) 0.400 Neut % (Auto) 69.1 Lymph % (Auto) 21.9 [place] % (Auto) 7.4 Eos % (Auto) 0.9 Baso % (Auto) 0.3 Absolute Neuts (auto) 6.5 Absolute Lymphs (auto) 2.08 Nucleated RBC % 0 POC Glucose 97 Blood Type O POSITIVE Antibody Screen NEGATIVE Course Did the patient receive Yes care? Labs Blood Type: O RH: POSITIVE RPR/VDRL/Syphilis Nonreactive Rubella status Immune HbSAg Negative Date Done: 07/30/19 Chlamydia Negative Gonorrhea Negative HIV/AIDS Non-Reactive Group B Strep: Negative Current Obstetrical History Gestational Diabetes Yes Incompetent Cervix No Infertility No IUGR No Macrosomia No Hypertension/Pre-eclampsia No Placenta Previa/Abruption No PTL/PROM No Uterine anomaly No Oligohydramnios No Polyhydramnios No Multiple gestation No Past Medical History Asthma No Diabetes Yes: GDM, resolved after of infant Hypertension No Heart disease No Mitral valve prolapse No Neurologic/Seizure disorder/ No Migraines Kidney disease No Liver disease No Varicosities No Clotting disorders/Hx of DVT No Thyroid Dysfunction No Other medical diseases No Psychiatric disorders Yes: zoloft taken for depression prior to this Major trauma No Abnormal PAP smear No Sleep apnea No Mammogram in the last 2 years No Social History Marital Status: Alleged father Gal[place] Hx Smoking No Smoking Status Never smoker How long have you used n/a substances (years)? Expected Delivery Method: Scheduled Section Number of Visits: 13 Physical Exam Vitals: Vital Signs Temp Pulse Resp BP Pulse Ox 98.1 F 89 16 141/81 H 98 01/20/20 05:51 01/20/20 05:51 01/20/20 05:51 01/20/20 05:51 01/20/20 05:51 General: Alert, Oriented x3, Cooperative, No apparent distress HEENT: Atraumatic, Normocephalic Cardiovascular: Regular rate, Regular Rhythm Lungs: Normal air movement Abdomen: Soft, Non Tender, Gravid Neurological: Neuro grossly intact Estimated gestational size: Appropriate for gestational size Assessment/Plan All Active Problems (Last Updated 01/20/20 @ 07:[address] Ani Kapoor MD) 39 weeks gestation of (Acute) This is a 24 year-old, G [2], P [1], at 39.3 weeks gestational age hx GDMA2 -EFW 3500g (01/06/20 3132g in the 51st%) -Proceed as planned for repeat C/S Procedure Criteria Procedure Type: Elective COVID Risk Discussion: The surgeon/proceduralist and patient have discussed in detail the risk of exposure to and/or potential harm posed by the COVID-19 virus with having a surgery/procedure at this time versus the risk of delaying the surgery/procedure. It is not possible to know either the risk of delaying the surgery or procedure or chance of getting an infection with perfect accuracy, but a joint decision was made between the patient and the surgeon/proceduralist to proceed at this time with the scheduled surgery/procedure as indicated on the consent form.
--- NOTE | 2020-01-20 08:21 | OP.PCM_ITS ---
Problem List (1) 39 weeks gestation of Status: Acute Delivery Classification: Scheduled Final LISSETH: 01/24/20 Final LISSETH Source: US <20 weeks Gestational age: 39 Weeks and 3 Days ekg monitor: Stephanie Wagner Type of Anesthesia:: Spinal Date of Procedure: 01/20/20 Pre-Operative Diagnosis: 39 3/7 wga, gestational diabetes Post-Operative Diagnosis: 39 3/7 wga, Gestational diabetes Indications: 24-year-old 2 para 1-0-0-1 at 39-3/7 weeks gestational age with history of gestational diabetes on glyburide admitted for scheduled repeat section. Procedural risks, benefits, indications and alternatives were reviewed. Patient desired to proceed. Indications for : Repeat Elective Description of Procedure: The patient was taken to the operating room and spinal analgesia was administered. She is placed in a dorsal supine position with left lateral tilt. The perineum and abdomen were prepped and draped in sterile fashion. And the spinal was found to be adequate. A Pfannenstiel incision was made using a scalpel and brought down to incise the subcutaneous tissue and rectus fascia at the midline. Subcutaneous tissue was bluntly dissected off the fascia laterally. The fascial incision was dissected laterally and cephalad using curved Parnell scissors. The superior leaflet of the rectus fascia was grasped using Kaci clamps and bluntly dissected and sharply dissected from the underlying rectus muscle. In a similar fashion the inferior rectus fascia was dissected from the underlying muscle. The rectus muscles were bluntly at the midline. The peritoneum was identified and entered [sharply], the peritoneal incision was extended however remained constricted thus the rectus muscles were partially transected using electrocoagulation. The bladder blade was placed into the abdomen and the vesicouterine peritoneal fold identified. The fold was incised and a bladder flap created. Bladder blade was then repositioned to the abdomen. A low transverse hysterotomy was made using the [Metzenbaum scissors] to level of the membranes. The hysterotomy was extended bluntly cephalad and caudad. The membranes were then ruptured revealing clear fluid. The head was elevated and brought to the level of the hysterotomy and the infant delivered revealing vigorous [female] infant. The cord was doubly clamped and cut after 30 seconds. The was passed to awaiting [nursery personnel]. The placenta was [expressed] from the uterus and appeared intact on inspection. The uterus was cleared of debris. The hysterotomy was then repaired using 0 Vicryl running lock suture. A second imbricating layer was also placed for additional hemostasis. The bladder blade was removed. The anterior cul-de-sac was cleared of debris. The peritoneum and rectus muscles were reapproximated using 2-0 Vicryl running suture. The rectus fascia was closed using 0 Vicryl running suture. The subcutaneous tissue was sponge irriga [place] and small capillary bleeding controlled using the Bovie device. The subcutaneous tissue was reapproximated using 2-0 Vicryl. The skin was closed using 4-0 Monocryl subcuticularly. A Mepilex occlusive dressing was placed over the incision. The fundus was firm. The patient was then transferred to the recovery room without complication. Sponge, instrument, and needle counts were correct ?2. Amniotic Membrane Rupture Type: Artificial Amniotic Fluid Description: Clear Placenta Disposition: [facility] Drain: Garcia to straight drain Fluids Replaced: 1100 ml Cord Entanglement: Around neck x 2, loose Nuchal Cord Compression: Without compression Cord Vessel Description: 3 Vessels Esitmated Blood Loss (ml): 500 Infant Gender: Female (1 minute): 8 (5 minute): 9 - Infant weight 3740g Delayed cord clamping: Yes Antibiotic Given: Ancef 2 grams IV x1 Pt instructed on risks of surgery: Bleeding, Anesthesia Risks, Infection, Need for Future C-Sections, Failure Rate of 1 to 2%, Injury to surrounding structure(s) including bowel and bladder Complications: None - Admit VTE Documentation VTE Present on Admission: No VTE Mechan Device Prophylaxis: SCD's VTE Pharm Prophylaxis ordered?: No
[2020-01-20] MEDS: Oxytocin 30 units/NS 500 ml 30 UNITS/500 ML IV.SOLN 167 UNITS IV (09:00)
[2020-01-20 09:51] LABS: Bedside Glucose 100 mg/dL (70-110)
[2020-01-20] MEDS: Lactated Ringers 1,000 ML 100 ML IV (11:54)
[2020-01-20] MEDS: Heparin Injection (Vial) 5,000 UNIT/ML VIAL 5000 UNIT SC ×2 (13:50→21:48)
[2020-01-20] MEDS: Ketorolac 30 MG/ML Syringe IV ×2 (13:51→19:58)
[2020-01-20] MEDS: 0.9% Saline Lock 10 ML Syringe IV (19:59)
[2020-01-20] MEDS: Ibuprofen 600 MG Tablet PO (20:25)
[2020-01-21 01:55] VITALS: PULSE 98; RESP 16; O2SAT 96
--- NOTE | 2020-01-21 02:46 | NURSING ---
discussed pain medication with pharmacy, plan to proceed with motrin as scheduled and discontinue toradol
[2020-01-21] MEDS: Ibuprofen 600 MG Tablet PO ×3 (02:55→14:47)
[2020-01-21 03:55] VITALS: BP 110/68; PULSE 72; RESP 12; TEMP 36.8; O2SAT 96
[2020-01-21] MEDS: Acetaminophen 500 MG Tablet 1000 MG PO ×3 (05:38→17:46)
[2020-01-21 05:52] VITALS: PULSE 99; RESP 16; O2SAT 96
[2020-01-21 06:00] LABS: Hematocrit 31.5 % (37-47); Hemoglobin 10.8 g/dL (12.0-15.0); Mean Corp Hgb Conc 34.3 g/dL (32-36); Mean Corpuscular Hgb 30.3 pg (27.0-32.0); Mean Corpuscular Volume 88.5 fL (81-99); Mean Platelet Vol. 9.6 fl (6.2-12.0); Platelet Count 129 K/mm3 (150-450); RBC Distribution Width CV 13.8 % (11.6-14.6); RBC Distribution Width SD 43.4 fl (35.1-43.9); Red Blood Count 3.56 M/mm3 (4.2-5.4); White Blood Count 9.6 K/mm3 (4.4-11.0)
[2020-01-21 06:01] LABS: Bedside Glucose 98 mg/dL (70-110)
--- NOTE | 2020-01-21 08:41 | DCINST_ITS ---
Discharge Diet: No Restrictions Discharge Activity: Return to Normal Activity, May not drive while taking narcotic pain medications., May Shower, - - No tub bath for 2 weeks May resume sexual activity in: 4-6 weeks Lifting Restrictions: 10 lb Suture Line Care: Avoid Pulling/Pushing Remove Dressing in (days):: 4 Cleanse incision/area with: Soap & Water Additional Instructions: If you experience any of the following, contact your healthcare provider. * Bleeding that soaks a pad every hour for 2 hours * Fever 100.4 or higher * Unrelieved incision or abdominal pain * Swelling, redness, discharge or bleeding from your incision or episiotomy site * Your incision begins to separate * Problems urinating (including inability to urinate or burning while urinating). * Visual changes * Severe headache * Flu-like symptoms * Pain or redness in one of both of your breasts * Pain, warmth, tenderness or swelling in your legs, especially the calf area * Frequent nausea and vomiting * Symptoms of depression or anxiety If you experience any of the following, call 911 or go to the nearest Emergency Room. * Chest pain * Problems breathing * Seizure activity * Partial or complete paralysis of a body part, slurred speech, weakness or drooping of the face, or a sudden inability to walk or hold your balance Allergies/Adverse Reactions: Allergies No Known Allergies Allergy (Verified 01/20/20 05:22) Medications to take at Discharge Ferrous Sulfate [Iron] 325 mg PO DAILY 01/22/18 Cholecalciferol (Vitamin D3) [Vitamin D3] 5,000 unit PO DAILY 01/20/20 Ibuprofen [Motrin] 600 mg PO Q8H PRN #30 tab 01/21/20 Oxycodone [Oxyir] 1 tab PO Q6H PRN PRN 7 Days #20 tablet 01/21/20 The following prescriptions were given: Ibuprofen [Motrin] 600 mg PO Q8H PRN #30 tab PRN Reason: pain Transmission Status: Pending to [facility] Oxycodone [Oxyir] 1 tab PO Q6H PRN PRN 7 Days #20 tablet PRN Reason: Pain Score 4-10/10 Transmission Status: Sent to [facility] Follow-Up: Call to make an appointment with your doctor for an incision check in 1-2 weeks. You will also need a 6 week post- follow up appointment. Test results from this visit will be discussed in further detail at your follow- up appointment, if applicable. Please Follow Up With: Ani Portillo MD When: 1-2 weeks Please Follow Up With: Ani Portillo MD When: 6 weeks Primary Care Physician: Dee Mejia MD [Primary Care Provider] -
--- NOTE | 2020-01-21 08:45 | PCM.PN.OB ---
Patient Problems: Active and Suspected Problems (Last Updated 01/20/20 @ 07:[address] Ani Kapoor MD) 39 weeks gestation of (Acute) Subjective: Pain is a 2/10. Only taking Ibuprofen and Tylenol for pain since late last night. Has been ambulating in her room, tolerating regular diet, urinating without problems, and passing flatus. daughter well with no concerns. Would like to discharge today. Objective: VSS. Pain well controlled with scheduled Ibuprofen and tylenol. Dressing is CDI. Fundus is firm, midline, u/1. Lochia rubra moderate. - Physical Exam Vitals/I&O's: Vital Signs Temp Pulse Resp BP Pulse Ox 98.2 F 99 16 110/68 96 01/21/20 03:55 01/21/20 05:52 01/21/20 05:52 01/21/20 03:55 01/21/20 05:52 Oxygen Delivery Method Room Air Weight: 99.7 kg Body Mass Index (BMI) 41.5 Intake and Output for Last 24 Hours 01/19/20 01/20/20 01/21/20 23:59 23:59 23:59 Intake Total 2297.91 / 2297.91 Output Total 800 / 800 400 / 400 Balance 1497.91 / 1497.91 -400 / -400 General: Alert, Oriented x3, Cooperative HEENT: Atraumatic, PERRLA, EOMI, Normocephalic Neck: Supple, No JVD, Negative Carotid Bruits Lungs: Clear to auscultation, Normal air movement Cardiovascular: Regular rate, No murmurs Abdomen: Bowel Sounds Present, Soft, Non Tender Extremities: No edema, Capillary Refill Less than 3 Seconds Skin: No rashes, No breakdown Musculoskeletal: No Tenderness to Palpation of Joints or Extremities Neurological: Cranial nerves II-XII grossly intact Psych/Mental Status: Normal Affect, Appropriate Laboratory Results 01/20/20 09:40: POC Glucose 100 01/21/20 05:42: POC Glucose 98 01/21/20 05:48: WBC 9.6, RBC 3.56 L, Hgb 10.8 L, Hct 31.5 L, MCV 88.5, MCH 30.3, MCHC 34.3, RDW Std Deviation 43.4, RDW Coeff of Vaughn 13.8, Plt Count 129 L, MPV 9.6 Current Medications Acetaminophen (Tylenol) 1,000 mg PO Q6H [facility] Last Admin: 01/21/20 05:38 Dose: 1,000 mg Documented by: Bisacodyl (Dulcolax) 10 mg RECTAL UD PRN PRN Reason: If no BM Dextrose (D50w Syringe) 0 gm IV X1 PRN; Protocol PRN Reason: Hypoglycemia Glucagon () 1 mg IM .X1 PRN PRN Reason: Hypoglycemia Heparin Sodium (Porcine) (Heparin Na) 5,000 unit SC Q12 [facility] Last Admin: 01/21/20 06:48 Dose: Not Given Documented by: Hydrocortisone (Hytone) 1 applic TOPICAL TID PRN PRN; Protocol PRN Reason: Discomfort Naloxone HCl 4 mg/ Dextrose 504 mls @ 0 mls/hr IV .Q0M PRN; Protocol PRN Reason: To maintain Resp. rate >10 Ibuprofen (Motrin) 600 mg PO Q6H [facility] Last Admin: 01/21/20 08:45 Dose: 600 mg Documented by: Methylergonovine Maleate (Methergine) 0.2 mg IM X1 PRN PRN Reason: Uterine Atony Naloxone HCl (Narcan) 0.02 mg IV Q1M PRN PRN Reason: RR <10 and pt unresponsive Ondansetron HCl (Zofran) 4 mg IV Q4H PRN PRN PRN Reason: Nausea Oxycodone HCl (Oxyir) 5 - 10 mg PO Q4H PRN PRN PRN Reason: Pain Score 4-10/10 Prochlorperazine Edisylate (Compazine Iv) 10 mg IV Q6H PRN PRN PRN Reason: NAUSEA Senna/Docusate Sodium (Senokot-S, Rosmery-Colace) 1 - 2 tablet PO DAILY [facility] Last Admin: 01/20/20 09:15 Dose: Not Given Documented by: Simethicone (Mylicon) 80 mg PO PCHS PRN PRN Reason: Indigestion/stomach pain Sodium Chloride () 5 - 15 ml IV UD PRN PRN Reason: SALINE FLUSH Last Admin: 01/20/20 19:59 Dose: 10 ml Documented by: Medical Necessity - Tobacco Use Smoking Status: Never smoker Assessment/Plan All Active Problems (Last Updated 01/20/20 @ 07:[address] Ani Kapoor MD) 39 weeks gestation of (Acute) A/P: POD #1 repeat csection Pain well controlled with oral medication Normal involution and course Dressing is CDI mother Dyad stable Would like to discharge today, pending 24H evaluation POC reviewed with attending Dr. Isaac
[2020-01-21 09:00] VITALS: BP 115/77; PULSE 82; RESP 18; TEMP 37.1
[2020-01-21] MEDS: Senna/Docusate Sodium 1 Tablet PO (11:59)
--- NOTE | 2020-01-21 14:04 | CASEMGMT ---
Social Work Assessment (information below generated with [employer]) Labor and Delivery Unit Patient Address: [address] [place] [address] [address], [place] [address] Phone number: [phone] Date of Referral: 01/20/2020; 01/21/2020 Time of Referral: 1233; 0505 Referred By: Dr. Elliott; Dr. Ambika Kapoor Date of Intervention: 01/21/2020 Time of Intervention: 1340 Reason for Referral: Maternal history of depression after her first child History obtained from: Medical records and mother of baby (MOB) Cherie Conner; father of baby (FOB) Galindo Conner also present for part of assessment. Household composition: MOB and FOB live in a home with their older son. Home situation is reported as adequate. Patient's parent/guardian status: MOB is a 24-year-old female and FOB a 27-year-old male; for 3 years. MOB denies any form of abuse, control, or intimidation in this relationship. Both parents were raised in the [facility] however did not join the [facility]. MOB and FOB now have 2 children together. Son Ferny was born in January 2018, and baby girl Liliana Conner was born on 01/20/2020. Medical History: M OB is G2, P1 to 2. care started at 14 weeks gestation. Maternal history of gestational diabetes. Baby Liliana was born weighing 8 pounds 4 ounces. Apgars 8 and 9 at 1 and 5 minutes of life. Educational Status: FAYE has an 8th grade education, which is the norm for the [facility] community. MOB and FOB both report ability to read, write, and understand what is written. Financial Status: FOB works in the [employer]. MOB stays at home. No reported concerns with finances reported or indicated to this television writer. Infant Supplies: MOB and FOB report have all needed supplies for the baby, and reportedly more so than when they had their first child. It is reported there is a safe safe sleep space in place for the baby, there is a car seat, and no concerns with clothes, diapers, or wipes. MOB is breast-feeding. Childcare/Caregiver(s): MOB is the primary caregiver of the children. MOB reports that FOB is helpful when he is at home. Transportation: MOB reports that both parents have driver lifter of sanitation truck's license in vehicles to drive. Programs/Agencies Involved: No reported agency involvement, nor any interest in referrals at this time. Parents declined a referral to help me grow. Children Services/Legal Issues: No reported history of any legal or children services issues. Behavioral Health Issues: Mental Health History: It is reported that FAYE experienced depression after the of her son. MOB and FOB report symptoms were present prior to even leaving the hospital, then got a little bit better, and then resurfaced about 2 or 3 days after returning home. FOB reports believe that a lot of the depression stems from issues with breast-feeding, and that things got better when MOB went to bottle feeding. MOB reports that she cried a lot, and felt sad. MOB reports the symptoms lasted for about a month, and that did go on medication for short time. During private conversation with MOB completed the [place] depression screen which was a score of 1. MOB denies any history of suicidal thoughts, plans, or attempts. Substance Use History: MOB denies any concerns with drugs or alcohol, and does not use anything during . No endorsement of any tobacco use either. Family History: MOB denies any family history of any type of emotional health concerns or history of depression. Drug Screens: MOB with a negative drug screen on 07/30/2019. Family/Social Stressors: MOB with history of depression after the of her first son, no current treatment or medication at this point. MOB does deny however any current concerns with depressive or anxiety symptoms. Support Systems: MOB reports that FOB is very helpful and supportive. It is reported that both MOB parents and FOB's parents are around and supportive as well. MOB does have a couple of sisters locally. Depression/Shaken Baby/Safe Sleeping educated to depression and anxiety, risk factors, and discussed resources MOB and FOB can access. Information provided on safe sleeping and shaking baby prevention. ASSESSMENT: Met with MOB and FOB in room, upon social service liaison entering the room MOB had baby to breast. Both parents cooperative, pleasant, and agreeable to meet with social service liaison. MOB's affect constricted. During assessment FOB did tend to answer the questions being asked, and spoke over MOB answering for MOB. MOB attempted to speak a few times but remained mostly quiet when FOB was talking. When this television writer would only look at MOB, the FOB was more reserved and MOB was able to speak. Did observe MOB to handle the baby appropriately and gently, as well as FOB to handle the baby in a similar fashion. FOB did present as helpful to MOB and willing to help with the care of the baby. MOB and FOB report to have all needed supplies, and reports to have adequate support from family if needed upon home-going. When meeting privately with MOB the depression screen was completed and MOB denied any symptoms except for occasionally blaming self unnecessarily. MOB reports that she believes she will be able to manage any depressive symptoms on her own this time, and knows that taking breaks and getting outside to be very helpful. Note, MOB did become tearful and started crying around the time of discussion about FOB's level of support, and when this and when after this television writer assessed for any history of abuse. This television writer explored with MOB her tears, and MOB states that the tears were tears of jeanne. MOB reports to be very thankful and grateful for the help that she receives from FOB. MOB and FOB both willing and receptive to additional information regarding depression. Reviewed with parents resources for home-going. Also provided a [facility] resource list for the parents to have access to, if needed in the future. MOB and FOB deny any concerns with home-going. No voiced concerns by nursing staff regarding parent-child interactions or interactions between the parents themselves. PLAN: MOB and baby will discharge home, likely later today, with help and support from the FOB. Resources provided for depression and a general resource list for [facility]. No other services requested or indicated. -QUITA Rea, TOAN
[2020-01-21 16:07] VITALS: BP 124/76; PULSE 86; RESP 18; TEMP 36.7
--- NOTE | 2020-01-21 17:10 | PCM.DC.SUM ---
Discharge Date and Diagnosis Date of Admission: 01/20/20 Date of Discharge: 01/21/20 Hospital Course and Treatment Operations: - - Repeat section Summary of Care Provided: The patient is a 24 year old F 2 parar 1 who presented at 39+ wga for scheduled repeat section. Her was complicated by GDMA2, controlled with Glyburide. She underwent an uncomplicated section and was discharged to home on post-operative day #1. Subjective: No complaints. Reports pain is minimal. OOB and voiding without difficulty and passing flatus. Tolerates PO. Denies heavy lochia. Infant nursing well. Requests early discharge. - Physical Exam Vitals/I&O's: Vital Signs Temp Pulse Resp BP Pulse Ox 98.1 F 86 18 124/76 H 96 01/21/20 16:07 01/21/20 16:07 01/21/20 16:07 01/21/20 16:07 01/21/20 05:52 Oxygen Delivery Method Room Air Weight: 99.7 kg Body Mass Index (BMI) 41.5 Intake and Output for Last 24 Hours 01/20/20 01/21/20 01/22/20 23:59 23:59 23:59 Intake Total 2297.91 / 2297.91 Output Total 800 / 800 400 / 400 Balance 1497.91 / 1497.91 -400 / -400 General: Alert, Oriented x3, Cooperative, No apparent distress HEENT: Atraumatic, Normocephalic Psych/Mental Status: Normal Affect, Appropriate, Alert and oriented to time, place, person, mood and affect Discharge Diet: No Restrictions Discharge Activity: Return to Normal Activity, May not drive while taking narcotic pain medications., May Shower, - - No tub bath for 2 weeks May resume sexual activity in: 4-6 weeks Suture Line Care: Avoid Pulling/Pushing Remove Dressing in (days):: 4 Cleanse incision/area with: Soap & Water Home Medications: Medications to take at Discharge Ferrous Sulfate [Iron] 325 mg PO DAILY 01/22/18 Cholecalciferol (Vitamin D3) [Vitamin D3] 5,000 unit PO DAILY 01/20/20 Ibuprofen [Motrin] 600 mg PO Q8H PRN #30 tab 01/21/20 Oxycodone [Oxyir] 1 tab PO Q6H PRN PRN 7 Days #20 tab 01/21/20 Following Prescriptions Were Given to Patient: Ibuprofen [Motrin] 600 mg PO Q8H PRN #30 tab PRN Reason: pain Transmission Status: Received by [facility] Oxycodone [Oxyir] 1 tab PO Q6H PRN PRN 7 Days #20 tab PRN Reason: Pain Score 4-10/10 Transmission Status: Received by [facility] Primary Care Physician: Dee Mejia MD [Primary Care Provider] - Please Follow Up With: Ani Portillo MD When: 1-2 weeks Please Follow Up With: Ani Portillo MD When: 6 weeks Disposition: Home Patient Condition:: Good Medical Necessity - Tobacco Use Smoking Status: Never smoker Meaningful Use Info Meaningful Use Diagnoses (Choose all that apply): None applicable
== END 2020-01-21 18:05 | disposition home or self-care (01) | DRG 788 ==
PROVIDERS: Admitting Provider Obstetrics & Gynecology; Referring Provider Obstetrics & Gynecology; Visit Provider Obstetrics & Gynecology
PROC: 10D00Z1 Extraction of Products of Conception, Low, Open Approach (ICD-10-PCS; CPT 59514; principal; 2020-01-20 07:15)
DX: O34.219 Maternal care for unspecified type scar from previous cesarean delivery (principal); O24.425 Gestational diabetes mellitus in childbirth, controlled by oral hypoglycemic drugs; O69.81X0 Labor and delivery complicated by cord around neck, without compression, not applicable or unspecified; Z3A.39 39 weeks gestation of pregnancy; Z37.0 Single live birth
CPT/HCPCS: 82962; 85025; 85027; 86850; 86900; 86901; 99218; J7120; A4216; G0378; J2405

== ENCOUNTER 2024-07-24 05:29 | Inpatient (IN) | payer SELFPAY, OTHER ==
[2024-07-24] VITALS (29 sets, daily range): BP systolic 112–152; BP diastolic 69–92; PULSE 76–99; RESP 15–20; TEMP 36.5–37.1; O2SAT 97–99; BMI 41.7
[2024-07-24] MEDS: Lactated Ringers 1,000 ML 999 ML IV (05:55)
[2024-07-24 06:20] LABS: Absolute Lymphocyte Count 2.05 X10^3/uL (0.83-4.51); Absolute Neutrophil Count 4.6 X10^3/uL (2.0-7.7); Basophil# 0.03 X10^3/uL; Basophil% 0.4 % (0-1); Eosinophil# 0.11 X10^3/uL; Eosinophils% 1.5 % (0-5); Hemoglobin 10.3 g/dL (12.0-15.0); Lymphocyte # 2.05 X10^3/ul (0.83-4.51); Lymphocyte % 27.9 % (19-41); Mean Corp Hgb Conc 31.2 g/dL (32-36); Mean Corpuscular Hgb 24.2 pg (27.0-32.0); Mean Corpuscular Volume 77.5 fL (81-99); Mean Platelet Vol. 10.2 fl (6.2-12.0); Monocyte# 0.56 X10^3/uL; Monocyte% 7.6 % (0-10); NRBC Flagged by Analyzer 0 % (0-5); Neutrophil # 4.58 X10^3/uL (2.7-7.7); Neutrophil % 62.2 % (47-70); Platelet Count 201 K/mm3 (150-450); RBC Distribution Width CV 14.6 % (11.6-14.6); RBC Distribution Width SD 40.6 fl (35.1-43.9); Red Blood Count 4.26 M/mm3 (4.2-5.4); White Blood Count 7.4 K/mm3 (4.4-11.0)
[2024-07-24 06:56] LABS: Bedside Glucose 82 mg/dL (74-106)
[2024-07-24] MEDS: Acetaminophen 500 MG Tablet 1000 MG PO ×3 (06:56→19:32)
[2024-07-24] MEDS: Lactated Ringers 1,000 ML 150 ML IV (06:58)
--- NOTE | 2024-07-24 07:08 | HP.PCM.OB_ITS ---
History and Physical Date of Admission: 07/24/24 PROBLEM: 39 week gestation, repeat section, A1GDM, obesity DIAGNOSIS: As above PAST SURGICAL HISTORY: PAST SURGICAL HISTORY PAST SURGICAL HISTORY Procedure Laterality Date ? DELIVERY ONLY x 2 PAST MEDICAL HISTORY: PAST MEDICAL HISTORY PAST MEDICAL HISTORY Diagnosis Date ? Gestational diabetes ? Gestational hypertension 2017 and 2019 SUBJECTIVE: Pt doing well SOCIAL HISTORY: SOCIAL HISTORY Social History Tobacco Use ? Smoking status: Never ? Smokeless tobacco: Never Vaping Use ? Vaping status: Never Used Substance Use Topics ? Alcohol use: Not Currently ? Drug use: Never ALLERGIESExpand by Default ALLERGIES No Known Allergies Current Outpatient Medications on File Prior to Visit Medication Sig ? blood sugar diagnostic test strip Use as directed to check glucose levels up to seven times daily. ? Lancets Use as directed to check glucose levels up to seven times daily. ? alcohol swabs (ALCOHOL PREP PADS) Use as directed to check glucose levels up to seven times daily. ? docosahexaenoic acid/epa (FISH OIL ORAL) Take by mouth. ? ergocalciferol, vitamin D2, (VITAMIN D2 ORAL) Take by mouth. ? FOLIC ACID ORAL Take by mouth. ? aspirin, enteric coated (ECOTRIN LOW STRENGTH) 81 mg EC tablet Take 1 tablet by mouth once daily. No current facility-administered medications on file prior to visit. OBJECTIVE: VITALS: BP 126/84 Wt 102.5 kg (226 lb) LMP 10/21/2023 (Exact Date) BMI 41.34 kg/m? HEENT: Normocephalic, atraumatic, Mucus membranes moist without lesions. SKIN: No lesions. CHEST: Normal respiratory effort. HEART: Regular rate. BACK: Nontender. ABDOMEN: Soft, non-tender, non-distended, no masses, no hepatosplenomegaly. LOWER EXTREMITIES: There was no pitting edema. ASSESSMENT: pre op PLAN: 1) Discussed r/b/a repeat section and consent signed. The ratio nale for the proposed surgery was discussed in addition to risks, benefits, and alternatives. General pre- and post-operative care was reviewed. Questions were answered. After discussion, the patient indicated a desire to proceed with the planned surgery. Christina Grove, DO Assessment & Plan Assessment/Plan (1) 39 weeks gestation of : (2) Obesity affecting : (3) History of gestational hypertension: (4) Previous section: (5) GDM (gestational diabetes mellitus), class A1:
[2024-07-24] MEDS: Sodium Citrate/Citric Acid 30 ML UDC PO (07:09)
[2024-07-24] MEDS: Cefazolin 2 GM in Syringe IV (07:29)
[2024-07-24 08:36] LABS: Syphilis Antibodies Non-reactive
--- NOTE | 2024-07-24 08:47 | OP.PCM_ITS ---
Problems Associated Problem List Diagnoses (1) GDM (gestational diabetes mellitus), class A1: (2) Previous section: (3) History of gestational hypertension: (4) Obesity affecting : (5) 39 weeks gestation of : Operative Report (Standard) Operative Information Date of Procedure: 07/24/24 Pre-Operative Diagnosis: 39 week gestation, A1GDM, obesity, history prior section Post-Operative Diagnosis: As above Surgery/Procedure Performed: RLTCS via pfannenstiel incision refrigeration person: Yes Sales Producer: Xiomara ROME Tasks completed by assistant manager of operations: Closing and Retracting Type of Anesthesia: Spinal RN Documented Start/Stop Times: Operation Date: 07/24/24 07:15 <No data on this case meets the specified criteria> Procedure Start Time: 07:42 Procedure Stop Time: 08:45 Select all DRAINS/GRAFTS/IMPLANTS that apply: None Special Medications: None Estimated Blood Loss: 800 mL Fluids Replaced: 1000 mL Specimen collected: No Description of surgery: The patient was taken to the operating room where spinal anesthesia was found to be adequate. She was prepped and draped in the dorsal supine position with a leftward tilt. A Pfannenstiel skin incision was made with a scalpel and carried down to the underlying layer of fascia. The fascia was incised in the midline. The fascial incision was extended laterally using Parnell scissors. The fascia was noted to be dense. The fascia was dissected off the rectus muscles with sharp dissection in a cephalad and caudad direction, with adhesions noted of the fascia to the rectus muscles. The rectus muscles were in the midline with a combination of sharp and blunt dissection. The peritoneum was the identified and entered sharply with good visualization of the bladder. The peritoneal incision was extended bluntly with lateral traction. A bladder blade was inserted. A low transverse incision was made on the uterus with a scalpel. The uterine incision was extended with cephalad and caudad traction. The head of the infant was elevated and fundal pressure was applied, however it was felt that there needed to be more space to be able to deliver the . Fundal pressure was no longer applied. A hand was inserted into the uterus and the uterine incision was extended left lateral using bandage scissors. The rectus muscles on the left side were slightly dissected using the Bovie cautery as well to allow for enough space to deliver head. The head of the was then again elevated and flexed and with fundal pressure the head was delivered. A loose nuchal cord x 2 was reduced. The shoulders and body of the infant were delivered without any excessive traction, force, or delay. The cord was clamped and cut after slight delay and the vigorous VMI was handed off to awaiting nursery staff. The placenta was removed with manual extraction. The uterus was cleared of all clot and debris. The uterus was exteriorized. The hysterotomy was closed with 1-0 Vicryl in a running locked fashion. Several additional [id number] sutures were placed for hemostasis. Bilateral adnexa were noted to be normal-appearing. The uterus was placed back into the abdomen. Hemoblast was placed over the hysterotomy and lower uterine segment. Pressure was applied. Hemostasis was confirmed. The subfascial space was inspected. The rectus muscles on the right side were noted to be oozing, and Tressa was placed over the rectus muscles. The rectus muscles were made hemostatic with combination of Bovie cautery and Tressa. Good hemostasis was noted of the subfascial space. The fascia was closed was STRATAFIX in a running fashion. The subcutaneous space was irrigated and made hemostatic with the Bovie cautery. Tressa was placed in the subcutaneous space. The subcutaneous space was reapproximated using 3-0 Vicryl. The skin was closed with 4 Monocryl in a subicular fashion by Xiomara ROME while I was present on labor and delivery. Instrument, sponge, sharp counts were correct x 2 the patient was taken to the cover him in stable condition. Surgical Findings: Moderate adhesive disease. Normal appearing uterus and bilateral adnexa. Normal appearing placenta. Vigorous VMI with apgars 7, 9 and weight 8 lb 6 oz. Loose nuchal cord x 2 without compression. Complications Complications: No Admit VTE Documentation VTE Present on Admission: No VTE Mechan Device Prophylaxis: SCD's
[2024-07-24] MEDS: Oxytocin 15 Units/NS 250ml 15 UNITS/250 ML IV.SOLN 83 UNITS IV (08:55)
[2024-07-24] MEDS: Ketorolac 30 MG/ML Syringe IV ×3 (09:11→21:25)
--- NOTE | 2024-07-24 09:51 | NURSING ---
Ancef prior to at 0732 was adminisitered by jon Bacon..
[2024-07-24 10:32] LABS: Bedside Glucose 86 mg/dL (74-106)
--- NOTE | 2024-07-24 13:55 | NURSING ---
All documentation by certified nursing assistant Marivel Hu reviewed by manager nursing home Jovita Brooks BSN, RN, CLC.
[2024-07-24] MEDS: 0.9% Saline Lock 10 ML Syringe IV ×2 (14:53→21:26)
--- NOTE | 2024-07-24 21:55 | NURSING ---
Patient states they had first ambulation post op at 8 hour jason. Not documented by previous RN. This RN documented in it's place. Patient up ad zeinab in room. Will continue to monitor. Maria Elena Avila RN
[2024-07-25] VITALS (8 sets, daily range): BP systolic 120–139; BP diastolic 57–75; PULSE 79–112; RESP 16–24; TEMP 36.6–37.2; O2SAT 96–100
[2024-07-25] MEDS: Acetaminophen 500 MG Tablet 1000 MG PO ×4 (01:00→20:12)
[2024-07-25] MEDS: NIFEdipine 30 MG Tablet PO (01:01)
[2024-07-25] MEDS: 0.9% Saline Lock 10 ML Syringe IV ×2 (03:40→09:57)
[2024-07-25] MEDS: Ketorolac 30 MG/ML Syringe IV (03:40)
[2024-07-25 05:40] LABS: Hematocrit 27.8 % (37-47); Hemoglobin 8.7 g/dL (12.0-15.0); Mean Corp Hgb Conc 31.3 g/dL (32-36); Mean Corpuscular Hgb 24.5 pg (27.0-32.0); Mean Corpuscular Volume 78.3 fL (81-99); Platelet Count 168 K/mm3 (150-450); RBC Distribution Width CV 14.7 % (11.6-14.6); RBC Distribution Width SD 41.7 fl (35.1-43.9); Red Blood Count 3.55 M/mm3 (4.2-5.4); White Blood Count 9.1 K/mm3 (4.4-11.0)
[2024-07-25 05:50] LABS: Bedside Glucose 93 mg/dL (74-106)
--- NOTE | 2024-07-25 07:25 | NURSING ---
report given to Derek Byrd RN who is assuming care of pt at this time
[2024-07-25] MEDS: Senna/Docusate Sodium 1 Tablet PO (08:48)
[2024-07-25] MEDS: Ibuprofen 600 MG Tablet PO ×3 (08:48→21:03)
--- NOTE | 2024-07-25 08:48 | PCM.PN.OB ---
Subjective Subjective The patient is doing well this morning. She denies headache or vision changes. She is doing well with the Procardia. Pain has been well-controlled and she has minimal pain. She feels she is ambulating without lightheadedness or dizziness. She denies chest pain, shortness breath, leg pain. She is voiding without difficulty. She is tolerating a regular diet without nausea or vomiting. Lochia has been normal. She is bottlefeeding. She desires discharge today. Objective Data Objective Data Vital Signs: Vital Signs Temp Pulse Resp BP Pulse Ox O2 Del Method 98.6 F 105 H 16 129/75 H 100 Room Air 07/25/24 08:19 07/25/24 08:19 07/25/24 08:19 07/25/24 08:19 07/25/24 08:19 07/25/24 08:19 Oxygen Delivery Method Room Air Weight: 228 lb 3.2 oz Body Mass Index (BMI) 41.7 Intake & Output: Intake and Output for Last 24 Hours 07/23/24 07/24/24 07/25/24 23:59 23:59 23:59 Intake Total 2962.5 / 2962.5 Output Total 1400 / 1400 300 / 300 Balance 1562.5 / 1562.5 -300 / -300 Lab / Micro Data 07/25/24 05:30 Labs: Laboratory Results - last 24 hr 07/24/24 09:52: POC Glucose 86 07/25/24 05:26: POC Glucose 93 07/25/24 05:30: WBC 9.1, RBC 3.55 L, Hgb 8.7 L, Hct 27.8 L, MCV 78.3 L, MCH 24.5 L, MCHC 31.3 L, RDW Std Deviation 41.7, RDW Coeff of Vaughn 14.7 H, Plt Count 168, MPV 10.0 Physical Exam Const alert and no apparent distress General Appearance: comfortable HEENT normocephalic Resp normal respiratory effort GI soft to palpation, non-tender and non-distended GI Narrative: Dressing c/d/i Extremity no calf tenderness Extremity Narrative: Trace edema bilaterally Assessment & Plan (1) S/P section: (2) Post-operative state: PLAN: POD#1 s/p repeat C/S. Doing well. Minimal pain. Strongly desires discharge today. D/c instructions reviewed. (3) Gestational hypertension: PLAN: BP's elevated on admission and . Procardia 30 mg started overnight and BP's well controlled. No symptoms of pre e. Patient has a blood pressure cuff at home, and she was instructed on blood pressure monitoring. She was instructed to come in next week for her incision check and blood pressure check. Discussed pre e warning signs and symptoms, and reasons to call. (4) Acute on chronic blood loss anemia: PLAN: Anemic on admission and post op. She has no symptoms of anemia. Discussed IV iron x 1 prior to discharge, and home going oral iron.
--- NOTE | 2024-07-25 09:03 | DCINST_ITS ---
Discharge Instructions Diet Discharge Diet: No restrictions DC O2, CPAP, BIPAP needs Home O2 Discharge instructions: No Dressing / Incision Discharge Activity: May Not Drive and May Shower May resume sexual activity in: 6 weeks (nothing in the vagina and no soaking in water) Ice area for (Minutes): 15 Weight Bearing Status: Weight bearing as tolerated Lifting Restrictions: nothing heavier than baby Additional Activity Instructions:: Check your blood pressure before the blood pressure medication, and several hours after. Keep a log of your blood pressure readings. Call the office if your blood pressure is persistently in the 150's. Call the office or after hours line if your blood pressure is ever 160/110 or higher. Call if you have a severe headache that does not improve with medication, vision changes, new persistent upper abdominal pain, nausea and vomiting. Dressing / Incision Call your doctor if your incision/area has: Continuous Slow Oozing, Sudden Increased Bleeding, Increased Pain/ Swelling, Increased Redness, Foul Smelling Discharge and Swelling at the incision site Call your doctor if you observe: Fever of 101 or Higher, Coldness, Increased Pain, Numbness or Tingling, Inability to urinate, Inability to have a bowel movement, Using more than 1 pad per hour, Shortness of breath, Dizziness, Fainting spells, Swelling in the ankles, Chest pain, Increased palpitations (irregular heartbeat), Calf discomfort and Uncontrolled pain Suture Line Care: Avoid Pulling/Pushing and Avoid Pinching/Bending Remove Dressing in: 3 days Cleanse incision/area with: Soap & Water Follow Up Care Please Follow Up With: Christina Grove DO When: Next week for an incision check and a blood pressure check 6 week exam Test Results: Test results from this visit will be discussed in further detail at your follow- up appointment, if applicable. Discharge Plan Admission Admit Date/Time: 07/24/24 05:29 Primary Reason for Your Visit: delivery Attending Provider: Christina Grove Primary Care Provider: Care Physician,Malinda Primary Instructions Patient Instructions: After a Discharge Orders/Prescriptions Prescriptions: New ibuprofen 600 mg tablet 600 mg PO Q6H PRN (Reason: pain) Qty: 20 0RF acetaminophen [Tylenol] 325 mg tablet 650 mg PO Q6H PRN (Reason: pain) Qty: 20 0RF docusate sodium [Colace] 100 mg capsule 100 mg PO BID PRN (Reason: constipation) Qty: 20 0RF ferrous sulfate 325 mg (65 mg iron) tablet,delayed release (DR/EC) 325 mg PO QODAY Qty: 20 0RF nifedipine [Procardia XL] 30 mg tablet extended release 24hr 30 mg PO DAILY Qty: 30 1RF Continued ferrous sulfate [Iron (ferrous sulfate)] 325 MG tablet 325 mg PO DAILY Cholecalciferol (Vitamin D3) [Vitamin D3] 5,000 UNIT capsule 5,000 unit PO DAILY cod liver oil Capsule 1 cap PO DAILY Discontinued ibuprofen 600 MG tablet 600 mg PO Q8H PRN (Reason: pain) Qty: 30 0RF folic acid 20 mg capsule 20 mg PO DAILY aspirin 81 mg tablet,delayed release (DR/EC) 81 mg PO DAILY Referrals / Follow Up: Care Physician,No Primary [Primary Care Provider] - Disposition Disposition (needs filled in before D/C Order can be placed): Home, Self Care
[2024-07-25] MEDS: Iron Sucrose Complex 200 MG in 0.9% Normal Saline (100mL Bag) 100 ML 220 MG IV (09:57)
[2024-07-26] MEDS: Acetaminophen 500 MG Tablet 1000 MG PO ×2 (01:26→09:01)
[2024-07-26 01:28] VITALS: BP 139/85; PULSE 72; RESP 16; TEMP 36.6; O2SAT 98
[2024-07-26] MEDS: Ibuprofen 600 MG Tablet PO ×2 (02:59→09:17)
--- NOTE | 2024-07-26 06:12 | PCM.DC.SUM ---
Providers Date of Admission: 07/24/24 Primary Care Physician: No Primary Care Phys Reason For Visit: REPEAT C SECTION Diagnosis Discharge Diagnosis (1) S/P section: Status: Acute Code(s): Z98.891 - History of uterine scar from previous surgery (2) Post-operative state: Status: Acute Code(s): Z98.890 - Other specified postprocedural states (3) Gestational hypertension: Status: Acute Code(s): O13.9 - Gestational [-induced] hypertension without significant proteinuria, unspecified trimester (4) Acute on chronic blood loss anemia: Status: Chronic Code(s): D62 - Acute posthemorrhagic anemia Medications at Discharge Home Medications ferrous sulfate 325 mg (65 mg iron) tablet (Iron (ferrous sulfate)) 325 mg PO DAILY anemia 01/22/18 Cholecalciferol (Vitamin D3) [Vitamin D3] 5,000 unit PO DAILY vitamin 01/20/20 cod liver oil 1 cap PO DAILY 07/24/24 acetaminophen 325 mg tablet (Tylenol) 650 mg (2 x 325 mg) PO Q6H PRN pain #20 tabs 07/25/24 docusate sodium 100 mg capsule (Colace) 100 mg PO BID PRN constipation #20 caps 07/25/24 ferrous sulfate 325 mg (65 mg iron) tablet,delayed release 325 mg PO QODAY #20 tabs 07/25/24 ibuprofen 600 mg tablet 600 mg PO Q6H PRN pain #20 tabs 07/25/24 nifedipine 30 mg tablet,extended release 24 hr (Procardia XL) 30 mg PO DAILY #30 tabs 07/25/24 Hospital Course Operations section Procedures None Summary of Care Provided Minutes Spent on Discharge: 15 Hospital Course: Patient had section. Hospital course was uneventful. Physical Exam Narrative Dressing is dry and intact. Patient ambulating and voiding without difficulty. Denies headache, vision changes, SOB, CP or RUQ pain. Desires discharge home today. Formula feeding. Const alert and no apparent distress General Appearance: cooperative and comfortable Exam Limitations: no limitations HEENT normocephalic Eyes General Eye: normal appearance of both eyes Neck full ROM General: normal visual inspection Chest Chest: symmetrical chest wall rise Resp normal respiratory effort and normal air movement Effort and Inspection: symmetric chest movement Auscultation: clear to auscultation bilaterally Cardio regular rate and regular rhythm GI normal to inspection, nondistended, normoactive bowel sounds Back/Spine normal ROM Extremity full ROM and no calf tenderness General Extremity: normal exam except as noted Skin no rashes or lesions noted Wound Narrative: Dressing is dry and intact. Neuro CN's II-XII intact bilaterally Psych mental status grossly normal Weight / BMI Weight Weight: 228 lb 3.2 oz Body Mass Index (BMI) 41.7 ABG / Lab / Microbiology Data 07/25/24 05:30 D/C Instructions Discharge Diet: No restrictions Discharge Activity: May Drive (2 weeks) and May Shower May resume sexual activity in: 6 weeks (nothing in the vagina and no soaking in water) Ice area for (Minutes): 15 Weight Bearing Status: Weight bearing as tolerated Lifting Restricted to (Lbs): 25 Additional Activity Instructions: Check your blood pressure before the blood pressure medication, and several hours after. Keep a log of your blood pressure readings. Call the office if your blood pressure is persistently in the 150's. Call the office or after hours line if your blood pressure is ever 160/110 or higher. Call if you have a severe headache that does not improve with medication, vision changes, new persistent upper abdominal pain, nausea and vomiting. Call your doctor if your incision/area has: Continuous Slow Oozing, Sudden Increased Bleeding, Increased Pain/ Swelling, Increased Redness, Foul Smelling Discharge and Swelling at the incision site Call your doctor if you observe: Fever of 101 or Higher, Coldness, Increased Pain, Numbness or Tingling, Inability to urinate, Inability to have a bowel movement, Using more than 1 pad per hour, Shortness of breath, Dizziness, Fainting spells, Swelling in the ankles, Chest pain, Increased palpitations (irregular heartbeat), Calf discomfort and Uncontrolled pain Suture Line Care: Avoid Pulling/Pushing and Avoid Pinching/Bending Remove Dressing in: 5 days (Remove yourself or call office and schedule appointment for dressing removal.) Cleanse incision/area with: Soap & Water DC O2, CPAP, BIPAP Needs Home O2 Discharge instructions: No Please Follow Up With: Christina Grove DO When: Next week for an incision check and a blood pressure check 6 week exam Meaningful Use Info Meaningful Use Meaningful Use Diagnoses (Choose all that apply): None applicable Ischemic Stroke Statin Dosing Therapy Reference: STATIN DOSE THERAPY REFERENCE: * Patients > 75 years receive moderate or high dose statin therapy. * Patients 75 years or YOUNGER should receive HIGH intensity statin dose unless contraindicated. You will be required to document reason for non-treatment if statin daily dose does not meet guidelines. HIGH DOSE STATIN THERAPY DAILY Atorvastatin > than or = to 40 mg Rosuvastatin > than or = to 20 mg Amlodipine + Atorvastatin > than or = to 2.5/40 mg Ezetimibe + Simvastatin 10/80 mg Simvastatin 80mg Discharge Plan Admission Admit Date/Time: 07/24/24 05:29 Primary Reason for Your Visit: delivery Attending Provider: Christina Grove Primary Care Provider: Care Physician,Malinda Primary Instructions Patient Instructions: After a Discharge Orders/Prescriptions Prescriptions: New ibuprofen 600 mg tablet 600 mg PO Q6H PRN (Reason: pain) Qty: 20 0RF acetaminophen [Tylenol] 325 mg tablet 650 mg PO Q6H PRN (Reason: pain) Qty: 20 0RF docusate sodium [Colace] 100 mg capsule 100 mg PO BID PRN (Reason: constipation) Qty: 20 0RF ferrous sulfate 325 mg (65 mg iron) tablet,delayed release (DR/EC) 325 mg PO QODAY Qty: 20 0RF nifedipine [Procardia XL] 30 mg tablet extended release 24hr 30 mg PO DAILY Qty: 30 1RF Continued ferrous sulfate [Iron (ferrous sulfate)] 325 MG tablet 325 mg PO DAILY Cholecalciferol (Vitamin D3) [Vitamin D3] 5,000 UNIT capsule 5,000 unit PO DAILY cod liver oil Capsule 1 cap PO DAILY Discontinued ibuprofen 600 MG tablet 600 mg PO Q8H PRN (Reason: pain) Qty: 30 0RF folic acid 20 mg capsule 20 mg PO DAILY aspirin 81 mg tablet,delayed release (DR/EC) 81 mg PO DAILY Referrals / Follow Up: Care Physician,No Primary [Primary Care Provider] - Disposition Disposition (needs filled in before D/C Order can be placed): Home, Self Care
[2024-07-26 09:04] VITALS: BP 146/85; PULSE 90; RESP 16; TEMP 36.6; O2SAT 97
[2024-07-26] MEDS: Senna/Docusate Sodium 1 Tablet PO (09:17)
[2024-07-26] MEDS: NIFEdipine 30 MG Tablet PO (09:29)
== END 2024-07-26 09:45 | disposition home or self-care (01) | DRG 787 ==
PROVIDERS: Admitting Provider Obstetrics & Gynecology; Visit Provider Obstetrics & Gynecology
PROC: 10D00Z1 Extraction of Products of Conception, Low, Open Approach (ICD-10-PCS; CPT 59514; principal; 2024-07-24 07:00)
DX: O34.211 Maternal care for low transverse scar from previous cesarean delivery (principal); D62 Acute posthemorrhagic anemia; O99.214 Obesity complicating childbirth; O24.420 Gestational diabetes mellitus in childbirth, diet controlled; O99.02 Anemia complicating childbirth; O13.4 Gestational [pregnancy-induced] hypertension without significant proteinuria, complicating childbirth; O69.81X0 Labor and delivery complicated by cord around neck, without compression, not applicable or unspecified; Z37.0 Single live birth; Z3A.39 39 weeks gestation of pregnancy; Z87.59 Personal history of other complications of pregnancy, childbirth and the puerperium
CPT/HCPCS: 59050; 82962; 85025; 85027; 86780; 86850; 86900; 86901; J1756; A4216; J2405